=== PATIENT | female | born 1965 | race Caucasian/White ===

== ENCOUNTER → 2017-01-25 | Outpatient (CLI) | payer BC ==
--- NOTE | 2017-01-25 11:30 | MM ---
Reason for exam: screening (asymptomatic). Last mammogram was performed 3 years and 7 months ago. History: Patient is postmenopausal and is nulliparous. Family history of breast cancer in maternal aunt. Taking progesterone for 20 years beginning at age 32. Physical Findings: A clinical breast exam by your physician is recommended on an annual basis and results should be correlated with mammographic findings. MG Screening Mammo w CAD Bilateral CC and MLO view(s) were taken. Prior study comparison: July 12, 2013, bilateral digital screening mammo w/CAD. February 03, 2012, bilateral digital screening mammo w/CAD. The breast tissue is heterogeneously dense. This may lower the sensitivity of mammography. There is no discrete abnormality. ASSESSMENT: Negative, BI-RAD 1 RECOMMENDATION: Routine screening mammogram of both breasts in 1 year.
== END | disposition home or self-care (01) ==
LOC: RADMAMWWP 08:18
PROVIDERS: ATTEND Internal Medicine
DX: Z12.31 Encounter for screening mammogram for malignant neoplasm of breast (principal)

== ENCOUNTER → 2017-05-13 | Outpatient (CLI) | payer BC ==
[2017-05-13 13:06] VITALS: BP 108/75; PULSE 76; TEMP 98; BMI 35.3
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
== END | disposition home or self-care (01) ==
LOC: BARWHC3 11:24
PROVIDERS: ATTEND Surgery Plastic and Reconstructive Surgery
DX: Z09 Encounter for follow-up examination after completed treatment for conditions other than malignant neoplasm (principal); R63.5 Abnormal weight gain; M19.90 Unspecified osteoarthritis, unspecified site; Z71.3 Dietary counseling and surveillance; Z98.84 Bariatric surgery status
CPT/HCPCS: 97803; 99211

== ENCOUNTER → 2018-04-11 | Outpatient (CLI) | payer BC ==
--- NOTE | 2018-04-13 10:29 | MM ---
Reason for exam: screening (asymptomatic). Last mammogram was performed 1 year and 2 months ago. History: Patient is postmenopausal and is nulliparous. Family history of breast cancer in maternal aunt. Taking progesterone for 20 years beginning at age 32. Physical Findings: A clinical breast exam by your physician is recommended on an annual basis and results should be correlated with mammographic findings. MG Screening Mammo w CAD Bilateral CC and MLO view(s) were taken. Prior study comparison: January 25, 2017, bilateral MG screening mammo w CAD. July 12, 2013, bilateral digital screening mammo w/CAD. The breast tissue is heterogeneously dense. This may lower the sensitivity of mammography. Finding: There are stable, fine, segmental calcifications in the middle posterior position of the left breast consistent with 2017 exam. No significant changes in finding since January 25, 2017. ASSESSMENT: Benign, BI-RAD 2 RECOMMENDATION: Routine screening mammogram of both breasts in 1 year.
== END | disposition home or self-care (01) ==
LOC: RADMAMWWP 16:51
PROVIDERS: ATTEND Internal Medicine
DX: Z12.31 Encounter for screening mammogram for malignant neoplasm of breast (principal)
CPT/HCPCS: 77067

== ENCOUNTER 2018-04-21 12:54 | Emergency (ER) | payer BC ==
[2018-04-21] MEDS ORDERED: MORPHINE SULFATE 2 MG/ML SYRINGE IVP ONE (13:40)
[2018-04-21] MEDS ORDERED: RX INFO: IV CONTRAST WAS GIVEN 1 EACH MISC MISCELLANE PRN (14:48)
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
--- NOTE | 2018-04-21 16:35 | CT ---
EXAMINATION TYPE: CT chest w con DATE OF EXAM: 04/21/2018 COMPARISON: NONE HISTORY: Chest and back pain after fall yesterday. CT DLP: 314.4 mGycm, Automated exposure control for dose reduction was used. CONTRAST: Performed injected with 35ml mL of Isovue 370. TECHNIQUE: Axial images were obtained at 5 mm thick sections. Reconstructed images are reviewed on [employer] computer in the coronal plane. FINDINGS: Portion of the thyroid visualized is normal. No pneumothorax is evident. No suspicious infiltrates are present. No pneumomediastinum is evident. N o perivascular air is identified. No enlarged mediastinal or hilar adenopathy is evident. The ascending aorta diameter at the level o f the main pulmonary artery is 2.6 cm. The main pulmonary artery diameter at the bifurcation is 2.[address] sections are obtained through the upper abdomen. Postsurgical changes are within the stoma ch. IMPRESSIONS: 1. No acute posttraumatic changes.
[2018-04-21] MEDS ORDERED: MORPHINE SULFATE 2 MG/ML SYRINGE IVP STA (16:37)
--- NOTE | 2018-04-21 16:50 | CT ---
EXAMINATION TYPE: CT angio neck DATE OF EXAM: 04/21/2018 HISTORY: Neck pain after fall yesterday. COMPARISON: NONE CT DLP: 303.6 mGycm. Automated Exposure Control for Dose Reduction was Utilized. TECHNIQUE: CTA scan of the neck is performed with IV Contrast, patient injected with 65ml mL of Isov ue 370, axial images are obtained, coronal and sagittal reformatted images are reviewed. Three-D sarai nstructed images are created on an independent workstation and reviewed. FINDINGS: Some beam hardening artifact from the anterior cervical fusion is evident. Carotid/Vascular Structures: There is a three-vessel arch. No perivascular air is identified within the mediastinum. Very minimal distal air is present on this study due to the skull base. The air appears to be diminished from the comparison study performed slightly earlier in the same date. Vertebral arteries are codominant. [place] tid bifurcations appear normal. No dissections are identified. Other: [place]: The right posterior communicating artery is patent. Internal carotid arterie s bifurcate into A1 and M1 segments. The A2 segments appear normal. The anterior communicating artery is patent. IMPRESSION: 1. An etiology for air adjacent to the vascular structures near the skull base or not identified. Con adjuster electrical contacts an occult skull base fracture. 2. Carotid bifurcations appear normal. The vertebral arteries are codominant. No dissections are iden tified.
[2018-04-21 17:07] VITALS: RESP 19
[2018-04-21 18:02] VITALS: BP 109/57; PULSE 68; TEMP 97.8
== END 2018-04-21 18:05 | disposition short-term general hospital (02) ==
LOC: EC 12:54
DX: S00.83XA Contusion of other part of head, initial encounter (principal); G93.89 Other specified disorders of brain; M54.2 Cervicalgia; M25.519 Pain in unspecified shoulder; R53.1 Weakness; G89.29 Other chronic pain; F32.9 Major depressive disorder, single episode, unspecified; Z79.891 Long term (current) use of opiate analgesic; Z79.899 Other long term (current) drug therapy; Z88.5 Allergy status to narcotic agent; Z98.1 Arthrodesis status; W18.09XA Striking against other object with subsequent fall, initial encounter; Y93.01 Activity, walking, marching and hiking; Y92.89 Other specified places as the place of occurrence of the external cause
CPT/HCPCS: 70450; 70486; 70498; 71260; 72125; 96374; 96376; 99285

== ENCOUNTER → 2019-04-28 | Outpatient (CLI) | payer BC ==
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
== END ==
LOC: RADMRIMAIN 18:49
PROVIDERS: ATTEND Physical Medicine & Rehabilitation
DX: M48.061 Spinal stenosis, lumbar region without neurogenic claudication (principal); M51.17 Intervertebral disc disorders with radiculopathy, lumbosacral region; M51.16 Intervertebral disc disorders with radiculopathy, lumbar region
CPT/HCPCS: 72148

== ENCOUNTER 2020-06-26 16:15 | Observation (INO) | payer BC ==
[2020-06-26] MEDS ORDERED: KETOROLAC 30 MG/ML 1 ML VIAL IVP STA (16:41)
[2020-06-26] MEDS ORDERED: DEXAMETHASONE SOD PHOSPHATE 10 MG/ML 1 ML VIAL IV STA (16:41)
[2020-06-26] MEDS ORDERED: HYDROmorphone 1 MG/ML 1 ML SYRINGE IVP STA (16:41)
[2020-06-26] MEDS ORDERED: ONDANSETRON 4 MG/2 ML VIAL IVP STA (16:41)
[2020-06-26] MEDS ORDERED: SODIUM CHLORIDE 0.9% 1,000 ML IV STA (16:41)
[2020-06-26] MEDS ORDERED: diphenhydrAMINE 50 MG/ML 1 ML VIAL IVP STA (16:45)
--- NOTE | 2020-06-26 16:59 | ED ---
Back Pain HPI - General Chief Complaint: Back Pain/Injury Stated Complaint: Back Pain Time Seen by Provider: 06/26/20 16:17 Source: patient, RN notes reviewed, old records reviewed Limitations: physical limitation - History of Present Illness Initial Comments: This is a 35-year-old female DF for evaluation of severe back pain history of chronic back pain and sciatica with prior MRI. Patient does get epidural injections but nothing recently. Patient was in severe pain [place] the pain was so severe that she had to call EMS to take her to recent near Hospital. Patient still presents with severe back pain today she was able to get home after getting pain medication at the other hospital and has been crawling around her house with inability to ambulate for the last 3 days. Patient able to move her legs as the back pain is severe, no loss of bowel or bladder no fevers no new trauma MD Complaint: back pain -: days(s) Similar Symptoms Previously: Yes Place: home Radiation: none Severity: severe Severity scale (1-10): 10 Quality: sharp Consistency: constant Improves With: none Worsens With: movement Context: while lifting Associated Symptoms: denies other symptoms - Related Data Home Medications Medication Instructions Recorded Confirmed Estrogens, Conjugated [Premarin] 0.625 mg PO QAM 11/28/14 10/05/18 Citalopram Hydrobromide [CeleXA] 40 mg PO HS 04/21/18 10/05/18 Tapentadol HCl [Nucynta ER] 100 mg PO BID 04/21/18 10/05/18 Topiramate [Topamax] 100 mg PO BID 04/21/18 10/05/18 ALPRAZolam [Xanax] 0.5 mg PO DAILY PRN 10/03/18 10/05/18 Allergies Allergy/AdvReac Type Severity Reaction Status Date / Time No Known Allergies Allergy Verified 06/26/20 18:44 Review of Systems ROS Statement: Those systems with pertinent positive or pertinent negative responses have been documented in the HPI. ROS Other: All systems not noted in ROS Statement are negative. 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 Past Anesthesia/Blood Transfusion Reactions: No Reported Reaction Past Psychological History: Depression Smoking Status: Never smoker Past Alcohol Use History: None Reported Past Drug Use History: Marijuana - Past Family History Mother Family Medical History: No Reported History General Exam Limitations: physical limitation General appearance: alert, in no apparent distress Head exam: Present: atraumatic, normocephalic, normal inspection Eye exam: Present: normal appearance, PERRL, EOMI. Absent: scleral icterus, conjunctival injection, periorbital swelling ENT exam: Present: normal exam, mucous membranes moist Neck exam: Present: normal inspection. Absent: tenderness, meningismus, ly mphadenopathy Respiratory exam: Present: normal lung sounds bilaterally. Absent: respiratory distress, wheezes, rales, rhonchi, stridor Cardiovascular Exam: Present: regular rate, normal rhythm, normal heart sounds. Absent: systolic murmur, diastolic murmur, rubs, gallop, clicks GI/Abdominal exam: Present: soft, normal bowel sounds. Absent: distended, tenderness, guarding, rebound, rigid Extremities exam: Present: normal inspection, full ROM, normal capillary refill. Absent: tenderness, pedal edema, joint swelling, calf tenderness Back exam: Present: normal inspection Neurological exam: Present: alert, oriented X3, CN II-XII intact Psychiatric exam: Present: normal affect, normal mood Skin exam: Present: warm, dry, intact, normal color. Absent: rash Course Vital Signs 06/26/20 06/26/20 06/26/20 16:16 17:17 17:30 Temperature 98.5 F Pulse Rate 71 65 65 Respiratory 18 18 18 Rate Blood Pressure 121/66 134/81 133/77 O2 Sat by Pulse 97 98 98 Oximetry 06/26/20 18:00 Temperature Pulse Rate 6 L Respiratory 18 Rate Blood Pressure 111/80 O2 Sat by Pulse 98 Oximetry - Reevaluation(s) Reevaluation #1: 06/26/20 16:59 Medical record is reviewed Reevaluation #2: 06/26/20 19:01 Patient still with severe back pain - Consultations Consultation #1: Spoke with [facility] to admit patient Medical Decision Making - Medical Decision Making 55 female here wit chronic back pain [place] for further imaging and pain control - Lab Data Result diagrams: 06/26/20 16:57 06/26/20 16:57 Lab Results 06/26/20 06/26/20 06/26/20 Range/Units 16:57 16:57 16:57 WBC 9.1 (3.8-10.6) k/uL RBC 4.30 (3.80-5.40) m/uL Hgb 13.0 (11.4-16.0) gm/dL Hct 41.0 (34.0-46.0) % MCV 95.4 (80.0-100.0) fL MCH 30.3 (25.0-35.0) pg MCHC 31.8 (31.0-37.0) g/dL RDW 13.8 (11.5-15.5) % Plt Count 248 (150-450) k/uL Neutrophils % 78 % Lymphocytes % 16 % Monocytes % 4 % Eosinophils % 1 % Basophils % 0 % Neutrophils # 7.1 (1.3-7.7) k/uL Lymphocytes # 1.5 (1.0-4.8) k/uL Monocytes # 0.4 (0-1.0) k/uL Eosinophils # 0.0 (0-0.7) k/uL Basophils # 0.0 (0-0.2) k/uL Sodium 137 (137-145) mmol/L Potassium 4.2 (3.5-5.1) mmol/L Chloride 108 H (98-107) mmol/L Carbon Dioxide 25 (22-30) mmol/L Anion Gap 4 mmol/L BUN 18 H (7-17) mg/dL Creatinine 1.00 (0.52-1.04) mg/dL Est GFR (CKD-EPI)AfAm 75 (>60 ml/min/1.73 sqM) Est GFR (CKD-EPI)NonAf 65 (>60 ml/min/1.73 sqM) Glucose 107 H (74-99) mg/dL Calcium 8.5 (8.4-10.2) mg/dL Phosphorus 2.5 (2.5-4.5) mg/dL Total Bilirubin 0.2 (0.2-1.3) mg/dL AST 17 (14-36) U/L ALT 17 (4-34) U/L Alkaline Phosphatase 74 (38-126) U/L Creatine Kinase 32 (30-135) U/L Troponin I <0.012 (0.000-0.034) ng/mL Total Protein 5.8 L (6.3-8.2) g/dL Albumin 3.4 L (3.5-5.0) g/dL - EKG Data -: EKG Interpreted by Me (EKG sinus rhythm 63 [place] 136 QRS 82 QTC 444) Disposition Clinical Impression: Mechanical back pain, Lumbar radiculopathy Disposition: ADMITTED IP TO THIS HOSP Condition: Fair Instructions (If sedation given, give patient instructions): Acute Low Back Pain (ED) Is patient prescribed a controlled substance at d/c from ED?: No Referrals: Mirna Worley MD [Primary Care Provider] - 1-2 days
[2020-06-26 17:06] LABS: Basophils % (A) 0 %; Eosinophils % (A) 1 %; Lymphocytes # (A) 1.5 k/uL (1.0-4.8); Lymphocytes % (A) 16 %; MCH 30.3 pg (25.0-35.0); MCHC 31.8 g/dL (31.0-37.0); MCV 95.4 fL (80.0-100.0); Mean Platelet Volume 7.7; Monocytes # (A) 0.4 k/uL (0-1.0); Monocytes % (A) 4 %; Neutrophils # (A) 7.1 k/uL (1.3-7.7); Neutrophils % (A) 78 %; Platelet Count 248 k/uL (150-450); RDW 13.8 % (11.5-15.5); WBC 9.1 k/uL (3.8-10.6)
[2020-06-26 17:22] LABS: Albumin 3.4 g/dL (3.5-5.0); Calcium 8.5 mg/dL (8.4-10.2); Phosphorus 2.5 mg/dL (2.5-4.5); Potassium 4.2 mmol/L (3.5-5.1); Total Bilirubin 0.2 mg/dL (0.2-1.3); Total Protein 5.8 g/dL (6.3-8.2)
--- NOTE | 2020-06-26 18:02 | US ---
EXAMINATION TYPE: US venous doppler duplex LE LT DATE OF EXAM: 06/26/2020 5:54 PM COMPARISON: NONE CLINICAL HISTORY: pain. Pain in left leg x 1 week. No hx of DVT. Patient does not take blood thinners . SIDE PERFORMED: Left TECHNIQUE: The lower extremity deep venous system is examined utilizing real time linear array sonog reji with graded compression, doppler sonography and color-flow sonography. VESSELS IMAGED: External Iliac Vein (EIV) Common Femoral Vein Deep Femoral Vein Greater Saphenous Vein * Femoral Vein Popliteal Vein Small Saphenous Vein * Proximal Calf Veins (* superficial vessels) Left Leg: No evidence of DVT in veins imaged at this time from prox calf veins to EIV. Duplicate fem oral vein seen mid-distal. Femoral vein appears small. Duplicate popliteal vein seen. IMPRESSION: No sign of left leg deep vein thrombosis.
[2020-06-26 20:45] VITALS: RESP 16
[2020-06-26] MEDS: HYDROmorphone 1 MG/ML 1 ML SYRINGE IVP PRN (21:16)
[2020-06-26 23:26] LABS: Appearance,Urine Clear (Clear); Bilirubin,Urine Negative (Negative); Blood,Urine Negative (Negative); Color,Urine Yellow; Glucose,Urine (UA) Negative (Negative); Ketones,Urine Negative (Negative); Leukocyte Esterase,Urine Negative (Negative); Nitrite,Urine Negative (Negative); Protein,Urine Negative (Negative); Specific Gravity,Urine 1.025 (1.001-1.035); Urobilinogen,Urine <2.0 mg/dL (<2.0)
[2020-06-27] MEDS: HYDROmorphone 1 MG/ML 1 ML SYRINGE IVP PRN ×7 (00:16→21:35)
[2020-06-27] MEDS: diphenhydrAMINE 50 MG/ML 1 ML VIAL IVP PRN ×2 (03:28→12:44)
[2020-06-27] MEDS: LIDOCAINE 5% PATCH TOPICAL SCH (07:51)
--- NOTE | 2020-06-27 14:34 | MR ---
EXAMINATION TYPE: MR lumbar spine wo/w con DATE OF EXAM: 06/27/2020 COMPARISON: 04/28/2019 HISTORY: Lower back pain into both Calf areas, Left side worse than right. Started over a year ago bu t became extreme 1 week ago. CONTRAST: 10 mL intravenous Gadavist. TECHNIQUE: Multiplanar, multisequence images of the lumbar spine were acquired. FINDINGS: L5-S1: Degenerative disc changes are present within the disc level with narrowing of the disc height. Some residual disc bulge and anterior thecal sac contact and mild bilateral exiting nerve root conta ct. This is greater on the left than the right. Correlate for left S1 radicular symptoms. L4-L5: Minimal disc bulge is present within the intrathecal sac contact. No AP spinal canal stenosis or neural foraminal stenosis present. L3-L4: There is a left paracentral disc herniation with [id number] intrathecal sac contact. Thi s extends posterior to the L3 vertebral level. This may be slightly smaller than 04/28/2019 exam. No AP spinal canal stenosis present. Neural foramen are patent. L2-L3: No significant disc bulge or disc herniation. No spinal canal stenosis. No foraminal stenosi s. L1-L2: No significant disc bulge or disc herniation. No spinal canal stenosis. No foraminal stenosi s. T12-L1: No significant disc bulge or disc herniation. No spinal canal stenosis. No foraminal stenos is. IMPRESSION: 1. Left paracentral disc herniation mild anterior thecal sac compression. This may be slightly smalle r than comparison at 2019. 2. Degenerative disc changes with disc bulging have contact with the exiting nerve roots at L5-S1. Co rrelate with left S1 radicular symptoms.
--- NOTE | 2020-06-27 15:45 | P.HPIM ---
History of Present Illness patient 52-year-old female with a history of chronic back pain sciatica in the past came in with complaints of back pain which has been going on for a few weeks much worse last the knee 4 days. Patient is comparing of radiation of the pain and tingling numbness along the lateral aspect of the thigh and aren't to the posterior aspect of the leg and foot on the left side. Patient pain is severe sharp 10/10 in the lumbosacral area. patient also believes that she has some weakness on clinical exam patient doesn't have any focal weakness denied any saddle anesthesia. Review of Systems REVIEW OF SYSTEMS: CONSTITUTIONAL: No fever, no malaise, no fatigue. HEENT: No recent visual problems or hearing problems. Denied any sore throat. CARDIOVASCULAR: No chest pain, orthopnea, PND, no palpitations, no syncope. PULMONARY: No shortness of breath, no cough, no hemoptysis. GASTROINTESTINAL: No diarrhea, no nausea, no vomiting, no abdominal pain. NEUROLOGICAL: No headaches, no weakness, no numbness. HEMATOLOGICAL: Denies any bleeding or petechiae. GENITOURINARY: Denies any burning micturition, frequency, or urgency. MUSCULOSKELETAL/RHEUMATOLOGICAL: as mentioned in HPI ENDOCRINE: Denies any polyuria or polydipsia. The rest of the 14-point review of systems is negative. Past Medical History Additional Past Medical History / Comment(s): Chronic Neck pain, back History of Any Multi-Drug Resistant Organisms: None Reported Past Surgical History: Bariatric Surgery, Cholecystectomy, Hysterectomy, O rthopedic Surgery, Tonsillectomy Additional Past Surgical History / Comment(s): neck surgery 04/04 , 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 Past Anesthesia/Blood Transfusion Reactions: No Reported Reaction Past Psychological History: Depression Smoking Status: Never smoker Past Alcohol Use History: None Reported Past Drug Use History: Marijuana - Past Family History Mother Family Medical History: No Reported History Medications and Allergies Home Medications Medication Instructions Recorded Confirmed Type Estrogens, Conjugated [Premarin] 0.625 mg PO DAILY 11/28/14 06/26/20 History Citalopram Hydrobromide [CeleXA] 40 mg PO HS 04/21/18 06/26/20 History Tapentadol HCl [Nucynta ER] 100 mg PO BID 04/21/18 06/26/20 History Cyclobenzaprine [Flexeril] 10 mg PO TID PRN 06/26/20 06/26/20 History Ibuprofen [Motrin Ib] 600 mg PO Q6H PRN 06/26/20 06/26/20 History Pantoprazole Sodium [Protonix] 40 mg PO DAILY 06/26/20 06/26/20 History Topiramate [Topamax] 100 mg PO BID 06/26/20 06/26/20 History predniSONE [Deltasone] See Taper PO DAILY 06/26/20 06/27/20 History ALPRAZolam [Xanax] 0.25 mg PO BID PRN 06/27/20 06/27/20 History Allergies Allergy/AdvReac Type Severity Reaction Status Date / Time No Known Allergies Allergy Verified 06/26/20 18:44 Physical Exam Vitals: Vital Signs Temp Pulse Pulse Resp BP BP Pulse Ox 06/27/20 14:28 97.5 F L 81 16 117/78 97 06/27/20 09:00 98.1 F 74 16 111/73 95 06/27/20 03:00 97.7 F 68 16 149/88 96 06/27/20 02:52 16 06/26/20 20:30 97.4 F L 75 16 120/58 97 06/26/20 18:30 63 18 128/80 98 06/26/20 18:00 65 18 111/80 98 06/26/20 17:30 65 18 133/77 98 06/26/20 17:17 65 18 134/81 98 06/26/20 16:16 98.5 F 71 18 121/66 97 Intake and Output 06/27/20 06/27/20 06/27/20 06:59 14:59 22:59 Intake Total 2360 Balance 2360 Intake: Intake, IV Titration 780 Amount Sodium Chloride 0.9% 1, 780 000 ml @ 130 mls/hr IV . Q7H42M STA Rx#:[id number] Oral 1580 Other: Voiding Method Toilet # Voids 240 1 PHYSICAL EXAMINATION: GENERAL: The patient is alert and oriented x3, not in any acute distress. Well developed, well nourished. HEENT: Pupils are round and equally reacting to light. EOMI. No scleral icterus. No conjunctival pallor. Normocephalic, atraumatic. No pharyngeal erythema. No thyromegaly. CARDIOVASCULAR: S1 and S2 present. No murmurs, rubs, or gallops. PULMONARY: Chest is clear to auscultation, no wheezing or crackles. ABDOMEN: Soft, nontender, nondistended, normoactive bowel sounds. No palpable organomegaly. MUSCULOSKELETAL: No joint swelling or deformity. EXTREMITIES: No cyanosis, clubbing, or pedal edema. NEUROLOGICAL: Gross neurological examination did not reveal any focal deficits. SKIN: No rashes. Results CBC & Chem 7: 06/26/20 16:57 06/26/20 16:57 Labs: Abnormal Lab Results - Last 24 Hours (Table) 06/26/20 Range/Units 16:57 Chloride 108 H (98-107) mmol/L BUN 18 H (7-17) mg/dL Glucose 107 H (74-99) mg/dL Total Protein 5.8 L (6.3-8.2) g/dL Albumin 3.4 L (3.5-5.0) g/dL Thrombosis Risk Factor Assmnt - Choose All That Apply Each Factor Represents 1 point: Age 41-60 years, Obesity (BMI >25), Swollen legs (current) Other congenital or acquired thrombophilia - If yes, enter type in comment: No Thrombosis Risk Factor Assessment Total Risk Factor Score: 3 Thrombosis Risk Factor Assessment Level: Moderate Risk Assessment and Plan Plan: -severe low back pain patient does have history of chronic low back pain. Patient had multiple steroid injections in the back in the past. Arthritic surgery was consulted. MRI was done which showed paracentral disc herniationon the left side along with mild anterior thecal sac compression at L3-L4 levelpatient also started on Decadron along with the anti-inflammatory medications with GI prophylaxis along with Dilaudid. -depression -Gastroesophageal reflux disease DVT prophylaxis with Lovenox
[2020-06-27] MEDS: dexAMETHasone 4 MG TAB PO SCH ×2 (16:25→21:36)
[2020-06-27] MEDS: KETOROLAC 30 MG/ML 1 ML VIAL IVP PRN (16:27)
[2020-06-27] MEDS: FAMOTIDINE 20 MG TAB PO SCH (21:35)
[2020-06-28] MEDS: HYDROmorphone 1 MG/ML 1 ML SYRINGE IVP PRN ×3 (00:41→08:54)
[2020-06-28] MEDS: KETOROLAC 30 MG/ML 1 ML VIAL IVP PRN (03:47)
[2020-06-28] MEDS: FAMOTIDINE 20 MG TAB PO SCH (08:44)
[2020-06-28] MEDS: dexAMETHasone 4 MG TAB PO SCH (08:52)
[2020-06-28] MEDS: LIDOCAINE 5% PATCH TOPICAL SCH (08:53)
[2020-06-28 11:42] VITALS: BP 140/84; PULSE 60; TEMP 98.1
--- NOTE | 2020-06-28 12:46 | P.CNOR ---
History of Present Illness - [facility] Consult date: 06/28/20 Requesting physician: Lea Lovelace Consult reason: low back pain, other (Left lower extremity radiculopathy) History of present illness: Patient is a very pleasant 55-year-old female who is seen and examined in the observation unit for further evaluation of low back pain and left lower extremity radiculopathy. She states she is known to have some chronic low back pain and left lower extremity radiculopathy over the past couple years. She follows with Dr. De La Rosa in the outpatient setting. Her pain is most significant radiating from the lumbar spine, into the left buttock, down the lateral thigh, down the posterior calf, into the bottom of the left foot. Her symptoms were present to a much lesser degree approximately one week ago. She was started on a prednisone taper by Dr. De La Rosa. She states she went to [facility] with her family last weekend. After prolonged walking, states she had some discomfort on Wednesday and her symptoms were severe by Wednesday. She has had difficulty with ambulation pain control since that time. She feels some weakness in her left lower extremity. She denies specific injury. She also admits to increased difficulty with urination since exacerbation of her symptoms. She does have normal sensation. She denies saddle anesthesia. Consultation was placed with orthopedic spine for further evaluation. Consultation was also placed with pain management who has been unable to see the patient as they are only opened Wednesday through here at the hospital. Patient denies any right lower extremity weakness or radiculopathy. She has been previously seen and examined by us in the outpatient setting in July 2019 was not a surgical candidate at that time. Patient has had an MRI of her lumbar spine prior to today's examination. 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 Past Anesthesia/Blood Transfusion Reactions: No Reported Reaction Past Psychological History: Depression Smoking Status: Never smoker Past Alcohol Use History: None Reported Past Drug Use History: Marijuana - Past Family History Mother Family Medical History: No Reported History Medications and Allergies Home Medications Medication Instructions Recorded Confirmed Type Estrogens, Conjugated [Premarin] 0.625 mg PO DAILY 11/28/14 06/26/20 History Citalopram Hydrobromide [CeleXA] 40 mg PO HS 04/21/18 06/26/20 History Tapentadol HCl [Nucynta ER] 100 mg PO BID 04/21/18 06/26/20 History Ibuprofen [Motrin Ib] 600 mg PO Q6H PRN 06/26/20 06/26/20 History Pantoprazole Sodium [Protonix] 40 mg PO DAILY 06/26/20 06/26/20 History Topiramate [Topamax] 100 mg PO BID 06/26/20 06/26/20 History ALPRAZolam [Xanax] 0.25 mg PO BID PRN 06/27/20 06/27/20 History Cyclobenzaprine [Flexeril] 10 mg PO TID PRN #30 tab 06/28/20 Rx HYDROcodone/APAP 7.5-325MG [[place] 1 tab PO Q4H PRN #20 tab 06/28/20 Rx 7.5-325] dexAMETHasone [Hexadrol] 4 mg PO TID #30 tab 06/28/20 Rx polyethylene glycoL 3350 [Miralax] 17 gm PO DAILY PRN #15 packet 06/28/20 Rx Allergies Allergy/AdvReac Type Severity Reaction Status Date / Time No Known Allergies Allergy Verified 06/26/20 18:44 Physical Examination Physical exam: Patient is awake, alert, and oriented 3 Vital signs stable Good chest excursion with deep inspiration and expiration Examination of lumbar spine reveals skin is intact with no abrasions, lacerations, or bruises; no erythema, purulence or signs of infection Lower extremity strength 5/5 bilaterally including hip flexion, knee extension, and plantar flexion Lower extremity strength is 4/5 including extensor hallucis longus on the left Lower extremity strength is 5/5 with breakaway strength including dorsiflexion on the left Right lower extremity strength is 5/5 including extensor hallucis longus and dorsiflexion Patellar reflex 2+ bilaterally No lower extremity hyperreflexia bilaterally Straight leg test negative bilateral lower extremities Some increased pain with L seeks testing on the left No signs or symptoms of DVT; no calf pain No pain with internal and external rotation of the hips bilaterally Neurovascularly intact Results Pertinent studies: MRI of the lumbar spine taken on 06/27/2020: L3-4 left paracentral disc protrusion with some contact to the thecal sac with extension posteriorly L3 without evidence of spinal canal stenosis or neuroforaminal stenosis and this protrusion may be smaller as compared to previous imaging taking from 04/28/2019; L4-5 minimal disc bulge; L5-S1 degenerative disc disease with residual disc bulging resulting in contact to the anterior thecal sac and some contact to the bilateral exiting nerve roots greater on the left than the right; overall alignment is adequately maintained; no evidence of vertebral body compression fracture - Labs Labs: H & H 06/26/20 Range/Units 16:57 Hgb 13.0 (11.4-16.0) gm/dL Hct 41.0 (34.0-46.0) % Result Diagrams: 06/26/20 16:57 06/26/20 16:57 Assessment and Plan Assessment: Assessment: Acute on chronic low back pain Acute on chronic left lower extremity radiculopathy Left lower extremity weakness L5-S1 degenerative disc disease L5-S1 disc protrusion with some contact to the exiting nerve roots greater on the left than the right L3-4 disc protrusion with some cephalad migration behind L3 Obesity (1) Lumbar back pain with radiculopathy affecting left lower extremity Status: Acute Code(s): M54.16 - RADICULOPATHY, LUMBAR REGION SNOMED Code(s): 287668137 (2) Degenerative disc disease at L5-S1 level Status: Acute Code(s): M51.36 - OTHER INTERVERTEBRAL DISC DEGENERATION, LUMBAR REGION SNOMED Code(s): 18255152 (3) Herniation of intervertebral disc between L5 and S1 Status: Acute Code(s): M51.27 - OTHER INTERVERTEBRAL DISC DISPLACEMENT, LUMBOSACRAL REGION SNOMED Code(s): 25429962 (4) Weakness of left lower extremity Status: Acute Code(s): R29.898 - OTH SYMPTOMS AND SIGNS INVOLVING THE MUSCULOSKELETAL SYSTEM SNOMED Code(s): 943598018 (5) Acute exacerbation of chronic low back pain Status: Acute Code(s): M54.5 - LOW BACK PAIN; G89.29 - OTHER CHRONIC PAIN SNOMED Code(s): 025285099 (6) Obesity (BMI 30-39.9) Status: Acute Code(s): E66.9 - OBESITY, UNSPECIFIED SNOMED Code(s): 143610388 Plan: Plan: 1. After reviewing of imaging, physical examination of the patient, and further discussion with the patient, we will currently plan to continue conservative treatment at this time. Patient was previously seen and examined in the outpatient setting after MRI imaging taken on 04/28/2019. MRI imaging taken yesterday, 06/27/2020, has not had significant change as compared to the previous imaging from 04/28/2019. Patient does have history of chronic low back pain and left lower extremity radiculopathy and follows with Dr. De La Rosa and the outpatient setting. Her symptoms have been significantly exacerbated after prolonged walking on [facility] with her family over the past weekend. Reviewing of imaging does not show evidence of significant spinal canal stenosis or neural foraminal stenosis throughout her lumbar spine. She does have some degenerative changes most significant at L5-S1 with some contact the exiting nerve greater on the left than the right. It is difficult to attribute all of her symptoms with her left lower extremity to the changes at L5-S1. Based on her changes at L5-S1, she could be a candidate for injections with pain management. Pain management services are not available in the hospital until this coming 07/01/2020. At this time, patient had been discussed in detail with medicine who is planning to try to help control the patient's symptoms would plan for discharge home today. Following discharge, patient may follow-up with Dr. De La Rosa in pain management this coming 07/01/2020, for further evaluation and to discuss further treatment options. We will plan to have her follow up on an as-needed basis as we are not currently planning for surgical intervention or lumbosacral spine. 2. Patient will continue to be seen in exam by medicine for her medical diagnoses Time with Patient: Greater than 30 (Including obtaining history, physical examination, reviewing of imaging, and dictation.)
--- NOTE | 2020-06-28 15:19 | P.DS ---
Providers Date of admission: 06/26/20 19:00 Attending physician: Ankur Danielle Consults: 06/27/20 15:44 Consult Physician Routine Consulting Provider: Tori Hassan Consult Reason/Comments: sciatic pain Do you want consulting provider notified?: Yes Primary care physician: Mirna Worley [facility] Course: 52-year-old female with a history of chronic back pain sciatica in the past came in with complaints of back pain which has been going on for a few weeks much worse last the knee 4 days. Patient is comparing of radiation of the pain and tingling numbness along the lateral aspect of the thigh and aren't to the posterior aspect of the leg and foot on the left side. Patient pain is severe sharp 10/10 in the lumbosacral area. patient also believes that she has some weakness on clinical exam patient doesn't have any focal weakness denied any saddle anesthesia. 06/28/2020 MRI was done which showed paracentral disc herniationon the left side along with mild anterior thecal sac compression at L3-L4 levelpatient also started on Decadron along with the anti-inflammatory medications . Patient is being discharged on [place], Flexeril, Decadron weaning doses, follow-up with the arthritic surgery and pain management as an outpatient. Patient does take extra Dilantin with his home. Patient pains is still not well controlled. PHYSICAL EXAMINATION: GENERAL: The patient is alert and oriented x3, not in any acute distress. Well developed, well nourished. HEENT: Pupils are round and equally reacting to light. EOMI. No scleral icterus. No conjunctival pallor. Normocephalic, atraumatic. No pharyngeal erythema. No thyromegaly. CARDIOVASCULAR: S1 and S2 present. No murmurs, rubs, or gallops. PULMONARY: Chest is clear to auscultation, no wheezing or crackles. ABDOMEN: Soft, nontender, nondistended, normoactive bowel sounds. No palpable organomegaly. MUSCULOSKELETAL: No joint swelling or deformity. EXTREMITIES: No cyanosis, clubbing, or pedal edema. NEUROLOGICAL: Gross neurological examination did not reveal any focal deficits. SKIN: No rashes. For rest of the medical problems and has physician course please refer to my HPI from yesterday Patient Condition at Discharge: Fair Plan - Discharge Summary New Discharge Prescriptions: New dexAMETHasone [Hexadrol] 4 mg PO TID #30 tab polyethylene glycoL 3350 [Miralax] 17 gm PO DAILY PRN #15 packet PRN Reason: Constipation HYDROcodone/APAP 7.5-325MG [[place] 7.5-325] 1 tab PO Q4H PRN #20 tab PRN Reason: Pain Continue Estrogens, Conjugated [Premarin] 0.625 mg PO DAILY Citalopram Hydrobromide [CeleXA] 40 mg PO HS Tapentadol HCl [Nucynta ER] 100 mg PO BID Pantoprazole Sodium [Protonix] 40 mg PO DAILY Topiramate [Topamax] 100 mg PO BID Ibuprofen [Motrin Ib] 600 mg PO Q6H PRN PRN Reason: Pain ALPRAZolam [Xanax] 0.25 mg PO BID PRN PRN Reason: Anxiety Cyclobenzaprine [Flexeril] 10 mg PO TID PRN #30 tab PRN Reason: muscle spasm Discontinued predniSONE [Deltasone] See Taper PO DAILY Discharge Medication List Estrogens, Conjugated [Premarin] 0.625 mg PO DAILY 11/28/14 [History] Citalopram Hydrobromide [CeleXA] 40 mg PO HS 04/21/18 [History] Tapentadol HCl [Nucynta ER] 100 mg PO BID 04/21/18 [History] Ibuprofen [Motrin Ib] 600 mg PO Q6H PRN 06/26/20 [History] Pantoprazole Sodium [Protonix] 40 mg PO DAILY 06/26/20 [History] Topiramate [Topamax] 100 mg PO BID 06/26/20 [History] ALPRAZolam [Xanax] 0.25 mg PO BID PRN 06/27/20 [History] Cyclobenzaprine [Flexeril] 10 mg PO TID PRN #30 tab 06/28/20 [Rx] HYDROcodone/APAP 7.5-325MG [[place] 7.5-325] 1 tab PO Q4H PRN #20 tab 06/28/20 [Rx] dexAMETHasone [Hexadrol] 4 mg PO TID #30 tab 06/28/20 [Rx] polyethylene glycoL 3350 [Miralax] 17 gm PO DAILY PRN #15 packet 06/28/20 [Rx] Follow up Appointment(s)/Referral(s): Tori Hassan DO [Doctor of Osteopathic Medicine] - As Needed (Patient may follow-up with Pascual Oneal PA-C or Dr. Andres Hassan at [facility] on an as-needed basis following discharge. ) Pain Clinic,[facility] [NON-STAFF] - 3 Days Mirna Worley MD [Primary Care Provider] - 3 Days Julio De La Rosa DO [Doctor of Osteopathic Medicine] - 1 Week Patient Instructions/Handouts: Acute Low Back Pain (ED) Discharge Disposition: HOME SELF-CARE
== END 2020-06-28 12:22 | disposition home or self-care (01) ==
LOC: EC 16:15 → 1SOBS 19:00
PROVIDERS: ADMIT Hospitalist; ATTEND Hospitalist
DX: M51.17 Intervertebral disc disorders with radiculopathy, lumbosacral region (principal); F32.9 Major depressive disorder, single episode, unspecified; K21.9 Gastro-esophageal reflux disease without esophagitis; G89.29 Other chronic pain; M54.2 Cervicalgia; M79.89 Other specified soft tissue disorders; E66.9 Obesity, unspecified; Z68.38 Body mass index [BMI] 38.0-38.9, adult; Z79.890 Hormone replacement therapy; Z79.899 Other long term (current) drug therapy; Z79.891 Long term (current) use of opiate analgesic; Z79.1 Long term (current) use of non-steroidal anti-inflammatories (NSAID); Z98.84 Bariatric surgery status; Z90.49 Acquired absence of other specified parts of digestive tract; Z90.710 Acquired absence of both cervix and uterus; Z98.890 Other specified postprocedural states; Z90.89 Acquired absence of other organs
CPT/HCPCS: 96361 ×3; 96375 ×2; 96376 ×3; 96374; 99285; 36415; 93005; 80053; 82550; 84100; 84484; 85025; 81003; 93971; 72158; G0378 ×3; J8540 ×2; J1200 ×2; J1100; J1885 ×2; J1170 ×3; A9585

== ENCOUNTER → 2020-12-04 | Outpatient (CLI) | payer BC ==
--- NOTE | 2020-12-05 13:31 | MM ---
Reason for exam: screening (asymptomatic). Last mammogram was performed 2 years and 8 months ago. History: Patient is postmenopausal and is nulliparous. Family history of breast cancer in maternal aunt. Taking progesterone for 20 years beginning at age 32. Physical Findings: A clinical breast exam by your physician is recommended on an annual basis and results should be correlated with mammographic findings. MG Screening Mammo w CAD Bilateral CC and MLO view(s) were taken. Prior study comparison: April 11, 2018, bilateral MG screening mammo w CAD. January 25, 2017, bilateral MG screening mammo w CAD. The breast tissue is heterogeneously dense. This may lower the sensitivity of mammography. Persistent regional calcifications on the left. Central left CC asymmetric density is more defined. ASSESSMENT: Incomplete: need additional imaging evaluation, BI-RAD 0 RECOMMENDATION: Special view mammogram of the left breast. (3D) If lesion persists on supplemental views, image directed ultrasound is recommended. [facility] will attempt to contact patient to return for supplemental views and ultrasound if indicated.
== END | disposition home or self-care (01) ==
LOC: RADMAMWWP 16:11
PROVIDERS: ATTEND Internal Medicine
DX: Z12.31 Encounter for screening mammogram for malignant neoplasm of breast (principal)
CPT/HCPCS: 77067

== ENCOUNTER → 2020-12-09 | Outpatient (CLI) | payer BC ==
--- NOTE | 2020-12-09 11:06 | MM ---
Reason for exam: additional evaluation requested from abnormal screening. Last mammogram was performed less than 1 month ago. History: Patient is postmenopausal and is nulliparous. Family history of breast cancer in maternal aunt. Taking progesterone for 20 years beginning at age 32. Physical Findings: Nurse did not find any significant physical abnormalities on exam. MG Work Up Mamm w CAD LT Spot compression CC, CCRL, and LM view(s) were taken of the left breast. Prior study comparison: December 04, 2020, bilateral MG screening mammo w CAD. April 11, 2018, bilateral MG screening mammo w CAD. The breast tissue is heterogeneously dense. This may lower the sensitivity of mammography. Regional calcifications are unchanged. Some scattered milk of calcium is also present. The central CC asymmetric density disperses on additional views. These results were verbally communicated with the patient and result sheet given to the patient on 12/09/20. ASSESSMENT: Benign, BI-RAD 2 RECOMMENDATION: Return to routine screening mammogram schedule for both breasts.
--- NOTE | 2020-12-09 11:07 | USB ---
Reason for exam: additional evaluation requested from abnormal screening. History: Patient is postmenopausal and is nulliparous. Family history of breast cancer in maternal aunt. Taking progesterone for 20 years beginning at age 32. US Breast Workup Limited LT Technologist: Mena Lawrence Left limited breast ultrasound including focal area of concern, retroareolar and axilla demonstrates no cystic or solid lesion seen. Scanned 3-6 o'clock. These results were verbally communicated with the patient and result sheet given to the patient on 12/09/20. ASSESSMENT: Benign, BI-RAD 2 RECOMMENDATION: Return to routine screening mammogram schedule for both breasts. Manage on a clinical basis with regard to left breast pain.
== END | disposition home or self-care (01) ==
LOC: RADMAMWWP 08:43
PROVIDERS: ATTEND Internal Medicine
DX: N63.23 Unspecified lump in the left breast, lower outer quadrant (principal); R92.8 Other abnormal and inconclusive findings on diagnostic imaging of breast
CPT/HCPCS: 77065

== ENCOUNTER → 2021-02-05 | Outpatient (CLI) | payer BC ==
--- NOTE | 2021-02-06 04:22 | MR ---
EXAMINATION TYPE: MR ankle RT wo con DATE OF EXAM: 02/05/2021 COMPARISON: None HISTORY: Right ankle pain and swelling for 3 months. Multiplanar multiecho imaging of the right ankle was performed without contrast. Achilles tendon is intact. Plantar fascia appears intact. There is mild ankle joint effusion. The william caneus is intact. Ankle mortise is anatomic. The collateral ligaments are intact. The medial and late ral flexor tendons appear intact. There is some fluid around the peroneal tendon. I see no bony destr uctive process. There is subcutaneous edema over the anterior distal tibia. There is some lateral mil d subcutaneous edema. IMPRESSION: No evidence of ligament or tendon tear. No fracture seen. Mild ankle joint effusion consistent with s ome nonspecific synovitis. Subcutaneous anterior and lateral edema.
== END ==
LOC: RADMRIMAIN 16:42
PROVIDERS: ATTEND Podiatrist
DX: R60.0 Localized edema (principal)

== ENCOUNTER 2021-02-22 23:05 | Emergency (ER) | payer BC ==
[2021-02-22 23:13] VITALS: RESP 18
[2021-02-22] MEDS ORDERED: SODIUM CHLORIDE 0.9% 500 ML 500 ML IV ONE (23:35)
[2021-02-22] MEDS ORDERED: ONDANSETRON 4 MG/2 ML VIAL IVP STA (23:35)
[2021-02-22] MEDS ORDERED: KETOROLAC 15 MG/ML 1 ML VIAL IVP STA (23:35)
[2021-02-22] MEDS ORDERED: ACETAMINOPHEN TAB 325 MG TAB PO STA (23:37)
[2021-02-22 23:51] LABS: Appearance,Urine Clear (Clear); Bilirubin,Urine Negative (Negative); Color,Urine Yellow; Glucose,Urine (UA) Negative (Negative); Ketones,Urine Trace (Negative); Protein,Urine Trace (Negative); Specific Gravity,Urine 1.024 (1.001-1.035)
[2021-02-22 23:52] LABS: Blood,Urine Negative (Negative); Leukocyte Esterase,Urine Negative (Negative); Nitrite,Urine Negative (Negative)
--- NOTE | 2021-02-23 00:18 | CT ---
EXAMINATION TYPE: CT abdomen pelvis wo con DATE OF EXAM: 02/23/2021 COMPARISON: None HISTORY: left flank pain. hx of kidney stones CT DLP: 1085.4 mGycm Automated exposure control for dose reduction was used. There is some patchy infiltrate at the lung bases. There is no pleural effusion. Liver spleen pancrea s appear intact. There are clips from cholecystectomy. There is gastric bariatric surgery. There is s mall hiatal hernia. There is no adrenal mass. Kidneys show normal size and contour. There is no hydronephrosis. Ureters a re not dilated. There is no retroperitoneal adenopathy. Appendix appears normal. Bladder distends smo othly. There is no inguinal hernia. There is no free fluid in the pelvis. There is no evidence of a p elvic mass. There are a few sigmoid small diverticula. There is no sign of diverticulitis. There is n o mesenteric edema. There is no ascites or free air. There is no bowel obstruction. Lumbar vertebra have normal alignment. There is narrowing of L5-S1 disc space. There is no compressio n fracture. The bony pelvis is intact. IMPRESSION: No evidence of acute abdomen and pelvis. No adverse change compared to old exam.
[2021-02-23 00:22] LABS: Basophils % (A) 0 %; Eosinophils % (A) 1 %; HCT 39.6 % (34.0-46.0); HGB 13.4 gm/dL (11.4-16.0); Lymphocytes # (A) 0.7 k/uL (1.0-4.8); Lymphocytes % (A) 19 %; MCV 91.2 fL (80.0-100.0); Mean Platelet Volume 7.7; Monocytes # (A) 0.1 k/uL (0-1.0); Monocytes % (A) 4 %; Neutrophils # (A) 2.8 k/uL (1.3-7.7); Neutrophils % (A) 75 %; Platelet Count 101 k/uL (150-450); RBC 4.34 m/uL (3.80-5.40); RDW 13.1 % (11.5-15.5); WBC 3.7 k/uL (3.8-10.6)
[2021-02-23 00:30] LABS: ALT 28 U/L (4-34); AST 53 U/L (14-36); African American GFR (CKD) >90 (>60 ml/min/1.73 sqM); Albumin 3.3 g/dL (3.5-5.0); Alkaline Phosphatase 87 U/L (38-126); Anion Gap 5 mmol/L; Blood Urea Nitrogen 13 mg/dL (7-17); Calcium 7.8 mg/dL (8.4-10.2); Carbon Dioxide 18 mmol/L (22-30); Chloride 107 mmol/L (98-107); Glucose 103 mg/dL (74-99); Non-African American GFR(CKD) 79 (>60 ml/min/1.73 sqM); Potassium 4.1 mmol/L (3.5-5.1); Sodium 130 mmol/L (137-145); Total Bilirubin 0.4 mg/dL (0.2-1.3); Total Protein 5.8 g/dL (6.3-8.2)
--- NOTE | 2021-02-23 00:36 | ED ---
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 Patient states that she recently was diagnosed with Covid 19 she's had fevers chills general malaise as well as cough and slight shortness of breath at times. Patient states that today she started having some dysuria and pain in her vulva. she states this is pretty typical of her vulvodynia. Patient states this wasn't what was concerning she states that she had some low back pain she stated she does have History of kidney stones and was concerned that she possibly had a stone or kidney infection. Patient presents emergency department today for evaluation of possible urinary tract infection she denies any abdominal pain chest pain shortness of breath at this time. She denies any leg swelling hemoptysis. Patient denies concern for sexual transmitted diseases denies new vaginal discharge or irritation Patient appears well and nontoxic distress - Related Data Home Medications Medication Instructions Recorded Confirmed Estrogens, Conjugated [Premarin] 0.625 mg PO DAILY 11/28/14 06/26/20 Citalopram Hydrobromide [CeleXA] 40 mg PO HS 04/21/18 06/26/20 Tapentadol HCl [Nucynta ER] 100 mg PO BID 04/21/18 06/26/20 Ibuprofen [Motrin Ib] 600 mg PO Q6H PRN 06/26/20 06/26/20 Pantoprazole Sodium [Protonix] 40 mg PO DAILY 06/26/20 06/26/20 Topiramate [Topamax] 100 mg PO BID 06/26/20 06/26/20 ALPRAZolam [Xanax] 0.25 mg PO BID PRN 06/27/20 06/27/20 Previous Rx's Medication Instructions Recorded Cyclobenzaprine [Flexeril] 10 mg PO TID PRN #30 tab 06/28/20 HYDROcodone/APAP 7.5-325MG [[place] 1 tab PO Q4H PRN #20 tab 06/28/20 7.5-325] dexAMETHasone [Hexadrol] 4 mg PO TID #30 tab 06/28/20 polyethylene glycoL 3350 [Miralax] 17 gm PO DAILY PRN #15 packet 06/28/20 Allergies Allergy/AdvReac Type Severity Reaction Status Date / Time No Known Allergies Allergy Verified 12/09/20 09:19 Review of Systems ROS Statement: Those systems with pertinent positive or pertinent negative responses have been documented in the HPI. ROS Other: All systems not noted in ROS Statement are negative. 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 Past Anesthesia/Blood Transfusion Reactions: No Reported Reaction Past Psychological History: Depression Smoking Status: Never smoker Past Alcohol Use History: None Reported Past Drug Use History: Marijuana - Past Family History Mother Family Medical History: No Reported History General Exam - General Exam Comments Initial Comments: General: The patient is awake and alert, in no distress, and does not appear acutely ill. Eye: Pupils are equal, round and reactive to light, extra-ocular movements are intact. No nystagmus. There is normal conjunctiva bilaterally. No signs of icterus. Ears, nose, mouth and throat: There are moist mucous membranes and no oral lesions. Neck: The neck is supple, there is no tenderness or JVD. Cardiovascular: There is a regular rate and rhythm. No murmur, rub or gallop is appreciated. Respiratory: Lungs are clear to auscultation, respirations are non-labored, breath sounds are equal. No wheezes, stridor, rales, or rhonchi. Gastrointestinal: Soft, non-distended, non-tender abdomen without masses or organomegaly noted. There is no rebound or guarding present. No CVA tenderness. Musculoskeletal: Normal ROM, no tenderness. Strength 5/5. Sensation intact. Pulses equal bilaterally 2+. Neurological: A&O x 3. CN II-XII intact grossly, There are no obvious motor or sensory deficits. Coordination appears grossly intact. Speech is normal. Skin: Skin is warm and dry and no rashes or lesions are noted. Psychiatric: Cooperative, appropriate mood & affect, normal judgment. Course Vital Signs 02/22/21 02/23/21 23:11 01:20 Temperature 100.1 F H 98.5 F Pulse Rate 93 83 Respiratory 18 18 Rate Blood Pressure 109/54 104/60 O2 Sat by Pulse 95 94 L Oximetry Medical Decision Making - Medical Decision Making I feel patient labs are consistent with viral illness with leukopenia. CT no stone. Urinalysis is appear overtly infected. Patient does have a history of vulvodynia. And states that the pain appears atypical that. The back pain I suspect is secondary to her Covid19 infection body aches. She denies any fall or trauma. At this time feel patient can is stable for discharge with outpatient follow-up, symptomatically treatment of fever/bodyaches with antipyretics outpatient--patient is agreeable to this care plan as well as marbin wells at this time. Attending agreeable to this care plan. - Lab Data Result diagrams: 02/23/21 00:06 02/23/21 00:06 Lab Results 02/22/21 02/23/21 02/23/21 Range/Units 23:22 00:06 00:06 WBC 3.7 L (3.8-10.6) k/uL RBC 4.34 (3.80-5.40) m/uL Hgb 13.4 (11.4-16.0) gm/dL Hct 39.6 (34.0-46.0) % MCV 91.2 (80.0-100.0) fL MCH 31.0 (25.0-35.0) pg MCHC 34.0 (31.0-37.0) g/dL RDW 13.1 (11.5-15.5) % Plt Count 101 L (150-450) k/uL MPV 7.7 Neutrophils % 75 % Lymphocytes % 19 % Monocytes % 4 % Eosinophils % 1 % Basophils % 0 % Neutrophils # 2.8 (1.3-7.7) k/uL Lymphocytes # 0.7 L (1.0-4.8) k/uL Monocytes # 0.1 (0-1.0) k/uL Eosinophils # 0.0 (0-0.7) k/uL Basophils # 0.0 (0-0.2) k/uL Sodium 130 L (137-145) mmol/L Potassium 4.1 (3.5-5.1) mmol/L Chloride 107 (98-107) mmol/L Carbon Dioxide 18 L (22-30) mmol/L Anion Gap 5 mmol/L BUN 13 (7-17) mg/dL Creatinine 0.85 (0.52-1.04) mg/dL Est GFR (CKD-EPI)AfAm >90 (>60 ml/min/1.73 sqM) Est GFR (CKD-EPI)NonAf 79 (>60 ml/min/1.73 sqM) Glucose 103 H (74-99) mg/dL Calcium 7.8 L (8.4-10.2) mg/dL Total Bilirubin 0.4 (0.2-1.3) mg/dL AST 53 H (14-36) U/L ALT 28 (4-34) U/L Alkaline Phosphatase 87 (38-126) U/L Total Protein 5.8 L (6.3-8.2) g/dL Albumin 3.3 L (3.5-5.0) g/dL Urine Color Yellow Urine Appearance Clear (Clear) Urine pH 7.0 (5.0-8.0) Ur Specific [place] 1.024 (1.001-1.035) Urine Protein Trace H (Negative) Urine Glucose (UA) Negative (Negative) Urine Ketones Trace H (Negative) Urine Blood Negative (Negative) Urine Nitrite Negative (Negative) Urine Bilirubin Negative (Negative) Urine Urobilinogen 2.0 (<2.0) mg/dL Ur Leukocyte Esterase Negative (Negative) Disposition Clinical Impression: History of vulvodynia, Dysuria, Fever, COVID-19, Body aches, Low back pain Disposition: HOME SELF-CARE Condition: Good Instructions (If sedation given, give patient instructions): Coronavirus Disease 2019 (COVID-19) Additional Instructions: Please use medication as discussed. Please follow-up with family doctor in the next 2 days. Please return to emergency room if the symptoms increase or worsen or for any other concerns. Is patient prescribed a controlled substance at d/c from ED?: No Referrals: Mirna Worley MD [Primary Care Provider] - 1-2 days Time of Disposition: 00:36
[2021-02-23 01:21] VITALS: BP 104/60; PULSE 83; TEMP 98.5
== END 2021-02-23 01:21 | disposition home or self-care (01) ==
LOC: EC 23:05
DX: M54.5 Low back pain (principal); R30.0 Dysuria; U07.1 COVID-19; Z79.899 Other long term (current) drug therapy; F32.9 Major depressive disorder, single episode, unspecified; Z90.49 Acquired absence of other specified parts of digestive tract; Z90.710 Acquired absence of both cervix and uterus; Z90.89 Acquired absence of other organs; Z98.84 Bariatric surgery status
CPT/HCPCS: 36415; 80053; 85025; 81003; 74176; 99284; 96374; 96375; 96361; J2405; J1885

== ENCOUNTER 2021-02-25 08:33 | Inpatient (IN) | payer BC ==
[2021-02-25] MEDS ORDERED: DEXAMETHASONE SOD PHOSPHATE 10 MG/ML 1 ML VIAL IV STA (09:02)
--- NOTE | 2021-02-25 09:02 | ED ---
General Adult HPI - General Chief complaint: Shortness of Breath Stated complaint: SUSANNE/covid+ Time Seen by Provider: 02/25/21 08:35 Source: patient Mode of arrival: ambulatory Limitations: no limitations - History of Present Illness Initial comments: Dictation was produced using [employer] dictation software. please excuse any grammatical, word or spelling errors. This patient was cared for during a federal and state declared state of emergency secondary to Covid 19 Chief Complaint: 55-year-old female with no significant past medical history presents to the emergency department for shortness of breath. Patient has been Covid positive for the last 8 days History of Present Illness: 55-year-old female she denies any significant past medical history. Patient states that she's been having worsening dyspnea especially worse on exertion. Patient states that several revisions in her household tested positive for Covid 19. Patient denies any history of diabetes. Denies any history of lung disease. Patient was brought in by EMS. EMS reports that patient was hypoxic with initial measurement of 80%. Patient does not use home O2. Patient was seen here recently for myalgias. She was discharged at that time. The ROS documented in this emergency department record has been reviewed and confirmed by me. Those systems with pertinent positive or negative responses have been documented in the HPI. All other systems are other negative and/or noncontributory. PHYSICAL EXAM: General Impression: Alert and oriented x3, mild dyspneic HEENT: Normocephalic atraumatic, extra-ocular movements intact, pupils equal and reactive to light bilaterally, mucous membranes moist. Cardiovascular: Heart regular rate and rhythm Chest: Able to complete full sentences, no retractions, no tachypnea Abdomen: abdomen soft, non-tender, non-distended, no organomegaly Musculoskeletal: Pulses present and equal in all extremities, no peripheral edema Motor: no focal deficits noted Neurological: CN II-XII grossly intact, no focal motor or sensory deficits noted Skin: Intact with no visualized rashes Psych: Normal affect and mood ED course: 55-year-old female presents to the emergency department for acute hypoxic respiratory failure secondary to Covid 19. As upon arrival shows 86% on room air, respiratory rate of 26. Patient placed on 4 L as a cannula and had redness measuring 96%. Patient given 10 mg of IV Decadron. Limited evaluation obtained. CBC unremarkable. D-dimer is slightly elevated at 0.72. Metabolic panel is unremarkable. Patient does have elevated inflammatory markers. Troponin is negative. Chest x-ray shows diffuse bilateral patchy pneumonia. Patient be admitted for hypoxic respiratory failure from over 19. Patient care will be transitioned to Dr. Lovelace on behalf of [facility] hospitalist group. EKG interpretation: Ventricular rate 86, normal sinus rhythm,. 144, care 72, QTc 433. No [place] prolongation, no QTC prolongation, no ST or T-wave changes noted. . Overall, this EKG is unremarkable - Related Data Home Medications Medication Instructions Recorded Confirmed Estrogens, Conjugated [Premarin] 0.625 mg PO DAILY 11/28/14 02/25/21 Citalopram Hydrobromide [CeleXA] 40 mg PO DAILY 04/21/18 02/25/21 Tapentadol HCl [Nucynta ER] 100 mg PO BID 04/21/18 02/25/21 Topiramate [Topamax] 100 mg PO BID 06/26/20 02/25/21 ALPRAZolam [Xanax] 0.25 mg PO BID PRN 02/25/21 02/25/21 Cyclobenzaprine [Flexeril] 10 mg PO DAILY@1200 02/25/21 02/25/21 Cyclobenzaprine [Flexeril] 20 mg PO HS 02/25/21 02/25/21 Allergies Allergy/AdvReac Type Severity Reaction Status Date / Time No Known Allergies Allergy Verified 02/25/21 10:05 Review of Systems ROS Statement: Those systems with pertinent positive or pertinent negative responses have been documented in the HPI. ROS Other: All systems not noted in ROS Statement are negative. 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 Past Anesthesia/Blood Transfusion Reactions: No Reported Reaction Past Psychological History: Depression Smoking Status: Never smoker Past Alcohol Use History: None Reported Past Drug Use History: Marijuana - Past Family History Mother Family Medical History: No Reported History General Exam Limitations: no limitations Course Vital Signs 02/25/21 02/25/21 02/25/21 08:37 08:46 10:31 Temperature 98.9 F Pulse Rate 88 90 89 Respiratory 26 H 24 20 Rate Blood Pressure 135/69 135/77 O2 Sat by Pulse 86 L 96 98 Oximetry Medical Decision Making - Lab Data Result diagrams: 02/25/21 08:54 02/25/21 08:54 Lab Results 02/25/21 02/25/21 02/25/21 Range/Units 08:54 08:54 08:54 WBC 3.8 (3.8-10.6) k/uL RBC 4.57 (3.80-5.40) m/uL Hgb 14.0 (11.4-16.0) gm/dL Hct 41.5 (34.0-46.0) % MCV 90.8 (80.0-100.0) fL MCH 30.6 (25.0-35.0) pg MCHC 33.7 (31.0-37.0) g/dL RDW 13.4 (11.5-15.5) % Plt Count 149 L (150-450) k/uL MPV 7.8 Neutrophils % 78 % Lymphocytes % 14 % Monocytes % 6 % Eosinophils % 0 % Basophils % 0 % Neutrophils # 3.0 (1.3-7.7) k/uL Lymphocytes # 0.5 L (1.0-4.8) k/uL Monocytes # 0.2 (0-1.0) k/uL Eosinophils # 0.0 (0-0.7) k/uL Basophils # 0.0 (0-0.2) k/uL D-Dimer 0.72 H (<0.60) mg/L FEU Sodium 132 L (137-145) mmol/L Potassium 4.0 (3.5-5.1) mmol/L Chloride 103 (98-107) mmol/L Carbon Dioxide 24 (22-30) mmol/L Anion Gap 5 mmol/L BUN 13 (7-17) mg/dL Creatinine 0.97 (0.52-1.04) mg/dL Est GFR (CKD-EPI)AfAm 77 (>60 ml/min/1.73 sqM) Est GFR (CKD-EPI)NonAf 67 (>60 ml/min/1.73 sqM) Glucose 105 H (74-99) mg/dL Plasma Lactic Acid Christian (0.7-2.0) mmol/L Calcium 7.8 L (8.4-10.2) mg/dL Total Bilirubin 0.5 (0.2-1.3) mg/dL AST 185 H (14-36) U/L ALT 75 H (4-34) U/L Alkaline Phosphatase 127 H (38-126) U/L Troponin I (0.000-0.034) ng/mL Total Protein 5.6 L (6.3-8.2) g/dL Albumin 3.0 L (3.5-5.0) g/dL 02/25/21 02/25/21 Range/Units 08:54 08:54 WBC (3.8-10.6) k/uL RBC (3.80-5.40) m/uL Hgb (11.4-16.0) gm/dL Hct (34.0-46.0) % MCV (80.0-100.0) fL MCH (25.0-35.0) pg MCHC (31.0-37.0) g/dL RDW (11.5-15.5) % Plt Count (150-450) k/uL MPV Neutrophils % % Lymphocytes % % Monocytes % % Eosinophils % % Basophils % % Neutrophils # (1.3-7.7) k/uL Lymphocytes # (1.0-4.8) k/uL Monocytes # (0-1.0) k/uL Eosinophils # (0-0.7) k/uL Basophils # (0-0.2) k/uL D-Dimer (<0.60) mg/L FEU Sodium (137-145) mmol/L Potassium (3.5-5.1) mmol/L Chloride (98-107) mmol/L Carbon Dioxide (22-30) mmol/L Anion Gap mmol/L BUN (7-17) mg/dL Creatinine (0.52-1.04) mg/dL Est GFR (CKD-EPI)AfAm (>60 ml/min/1.73 sqM) Est GFR (CKD-EPI)NonAf (>60 ml/min/1.73 sqM) Glucose (74-99) mg/dL Plasma Lactic Acid [place] 1.0 (0.7-2.0) mmol/L Calcium (8.4-10.2) mg/dL Total Bilirubin (0.2-1.3) mg/dL AST (14-36) U/L ALT (4-34) U/L Alkaline Phosphatase (38-126) U/L Troponin I <0.012 (0.000-0.034) ng/mL Total Protein (6.3-8.2) g/dL Albumin (3.5-5.0) g/dL Disposition Clinical Impression: COVID-19 Disposition: ADMITTED IP TO THIS HOSP Condition: Fair Referrals: Mirna Worley MD [Primary Care Provider] - 1-2 days Decision Time: 10:53
[2021-02-25 09:42] LABS: Basophils % (A) 0 %; Eosinophils % (A) 0 %; HCT 41.5 % (34.0-46.0); Lymphocytes # (A) 0.5 k/uL (1.0-4.8); Lymphocytes % (A) 14 %; MCH 30.6 pg (25.0-35.0); MCHC 33.7 g/dL (31.0-37.0); MCV 90.8 fL (80.0-100.0); Mean Platelet Volume 7.8; Monocytes # (A) 0.2 k/uL (0-1.0); Monocytes % (A) 6 %; Neutrophils % (A) 78 %; Platelet Count 149 k/uL (150-450); RBC 4.57 m/uL (3.80-5.40); RDW 13.4 % (11.5-15.5); WBC 3.8 k/uL (3.8-10.6)
[2021-02-25 09:48] LABS: Calcium 7.8 mg/dL (8.4-10.2); Total Bilirubin 0.5 mg/dL (0.2-1.3); Total Protein 5.6 g/dL (6.3-8.2)
[2021-02-25] MEDS ORDERED: ONDANSETRON 4 MG/2 ML VIAL IVP STA (10:10)
[2021-02-25] MEDS: ZINC SULFATE 220 MG CAP PO SCH (10:28)
[2021-02-25] MEDS: ACETAMINOPHEN TAB 325 MG TAB PO PRN (10:28)
[2021-02-25] MEDS: ASCORBIC ACID 500 MG TAB PO SCH ×2 (10:28→22:39)
--- NOTE | 2021-02-25 10:49 | XR ---
EXAMINATION TYPE: XR chest 1V portable DATE OF EXAM: 02/25/2021 COMPARISON: 09-02 HISTORY: Cough TECHNIQUE: Single frontal view of the chest is obtained. FINDINGS: Diffuse bilateral patchy areas of infiltrate. Postsurgical change overlying the cervical s pine. Heart size normal. Tiny effusions not excluded. No pneumothorax. IMPRESSION: Diffuse bilateral patchy pneumonia.
[2021-02-25] MEDS ORDERED: NALOXONE 0.4 MG/ML 1 ML VIAL IV PRN (10:54)
[2021-02-25] MEDS ORDERED: SODIUM CHLORIDE 0.9% 1,000 ML IV SCH (11:00)
[2021-02-25] MEDS ORDERED: CYCLOBENZAPRINE 10 MG TAB PO PRN (12:39)
--- NOTE | 2021-02-25 12:41 | P.HPIM ---
History of Present Illness Patient is pleasant 55-year-old the female came in with complains of shortness of breath diarrhea generalized body aches has been going on for a about 9 days and patient was tested for Covid 8 days ago which was positive. Patient has mildly elevated d-dimer of 0.7 to elevated liver enzymes sodium is 132, patient was hypoxic 6 chest x-ray showing diffuse bilateral patchy obesity is. I do not have any inflammatory markers available at this time. Review of Systems REVIEW OF SYSTEMS: CONSTITUTIONAL: As mentioned in HPI HEENT: No recent visual problems or hearing problems. Denied any sore throat. CARDIOVASCULAR: No chest pain, orthopnea, PND, no palpitations, no syncope. PULMONARY: No shortness of breath, no cough, no hemoptysis. GASTROINTESTINAL: no vomiting, no abdominal pain. NEUROLOGICAL: No headaches, no weakness, no numbness. HEMATOLOGICAL: Denies any bleeding or petechiae. GENITOURINARY: Denies any burning micturition, frequency, or urgency. MUSCULOSKELETAL/RHEUMATOLOGICAL: Denies any joint pain, swelling, or any muscle pain. ENDOCRINE: Denies any polyuria or polydipsia. The rest of the 14-point review of systems is negative. 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 Past Anesthesia/Blood Transfusion Reactions: No Reported Reaction Past Psychological History: Depression Smoking Status: Never smoker Past Alcohol Use History: None Reported Past Drug Use History: Marijuana - Past Family History Mother Family Medical History: No Reported History Medications and Allergies Home Medications Medication Instructions Recorded Confirmed Type Estrogens, Conjugated [Premarin] 0.625 mg PO DAILY 11/28/14 02/25/21 History Citalopram Hydrobromide [CeleXA] 40 mg PO DAILY 04/21/18 02/25/21 History Tapentadol HCl [Nucynta ER] 100 mg PO BID 04/21/18 02/25/21 History Topiramate [Topamax] 100 mg PO BID 06/26/20 02/25/21 History ALPRAZolam [Xanax] 0.25 mg PO BID PRN 02/25/21 02/25/21 History Cyclobenzaprine [Flexeril] 10 mg PO DAILY@1200 02/25/21 02/25/21 History Cyclobenzaprine [Flexeril] 20 mg PO HS 02/25/21 02/25/21 History Allergies Allergy/AdvReac Type Severity Reaction Status Date / Time No Known Allergies Allergy Verified 02/25/21 10:05 Physical Exam Vitals: Vital Signs Temp Pulse Resp BP Pulse Ox 02/25/21 10:31 89 20 135/77 98 02/25/21 08:46 90 24 96 02/25/21 08:37 98.9 F 88 26 H 135/69 86 L Intake and Output 02/24/21 02/25/21 02/25/21 22:59 06:59 14:59 Other: Weight 95.254 kg PHYSICAL EXAMINATION: GENERAL: The patient is alert and oriented x3, patient is on respiratory distress. Well developed, well nourished. HEENT: Pupils are round and equally reacting to light. EOMI. No scleral icterus. No conjunctival pallor. Normocephalic, atraumatic. No pharyngeal erythema. No thyromegaly. CARDIOVASCULAR: S1 and S2 present. No murmurs, rubs, or gallops. PULMONARY: Chest is clear to auscultation, no wheezing or crackles. ABDOMEN: Soft, nontender, nondistended, normoactive bowel sounds. No palpable organomegaly. MUSCULOSKELETAL: No joint swelling or deformity. EXTREMITIES: No cyanosis, clubbing, or pedal edema. NEUROLOGICAL: Gross neurological examination did not reveal any focal deficits. SKIN: No rashes. Results CBC & Chem 7: 02/25/21 08:54 02/25/21 08:54 Labs: Abnormal Lab Results - Last 24 Hours (Table) 02/25/21 02/25/21 02/25/21 Range/Units 08:54 08:54 08:54 Plt Count 149 L (150-450) k/uL Lymphocytes # 0.5 L (1.0-4.8) k/uL D-Dimer 0.72 H (<0.60) mg/L FEU Sodium 132 L (137-145) mmol/L Glucose 105 H (74-99) mg/dL Calcium 7.8 L (8.4-10.2) mg/dL AST 185 H (14-36) U/L ALT 75 H (4-34) U/L Alkaline Phosphatase 127 H (38-126) U/L Total Protein 5.6 L (6.3-8.2) g/dL Albumin 3.0 L (3.5-5.0) g/dL Assessment and Plan Plan: -Acute hypoxic respiratory failure: Secondary to covid 19 pneumonia. Patient will be started on Decadron -Hypovolemic hyponatremia secondary to diarrhea from her Covid. Patient was sta rted on IV fluids will repeat basic metabolic profile again tomorrow -Elevated liver enzymes secondary to widely illness -Depression DVT prophylaxis Lovenox GI prophylaxis Pepcid
[2021-02-25] MEDS: ONDANSETRON 4 MG/2 ML VIAL IVP PRN (13:08)
[2021-02-25] MEDS: FAMOTIDINE 20 MG TAB PO SCH ×2 (13:11→22:39)
[2021-02-25] MEDS: SODIUM CHLORIDE 0.9% 1,000 ML IV SCH ×2 (13:12→22:48)
[2021-02-25] MEDS ORDERED: REMDESIVIR 200 MG in SODIUM CHLORIDE 0.9% 250 ML IVPB ONE (20:30)
[2021-02-25] MEDS: TOPIRAMATE 100 MG TAB PO SCH (22:16)
[2021-02-25] MEDS: TAPENTADOL HCL PO SCH (22:16)
[2021-02-26] MEDS: FAMOTIDINE 20 MG TAB PO SCH ×2 (08:05→20:47)
[2021-02-26] MEDS: dexAMETHasone 2 MG TAB PO SCH (08:05)
[2021-02-26] MEDS: CITALOPRAM HYDROBROMIDE 20 MG TAB PO SCH (08:05)
[2021-02-26] MEDS: ASCORBIC ACID 500 MG TAB PO SCH ×2 (08:05→20:47)
[2021-02-26] MEDS: TOPIRAMATE 100 MG TAB PO SCH ×2 (08:05→20:47)
[2021-02-26] MEDS: ENOXAPARIN 40 MG/0.4 ML SYRINGE SQ SCH (08:05)
[2021-02-26] MEDS: ZINC SULFATE 220 MG CAP PO SCH (08:05)
[2021-02-26] MEDS: ESTROGENS, CONJUGATED 0.625 MG TAB PO SCH (08:05)
[2021-02-26] MEDS: SODIUM CHLORIDE 0.9% 1,000 ML IV SCH ×3 (08:06→21:04)
[2021-02-26] MEDS: TAPENTADOL HCL PO SCH ×2 (08:10→17:52)
[2021-02-26] MEDS: ONDANSETRON 4 MG/2 ML VIAL IVP PRN ×2 (09:55→20:58)
[2021-02-26] MEDS: ACETAMINOPHEN TAB 325 MG TAB PO PRN (09:55)
[2021-02-26 09:59] LABS: African American GFR (CKD) >90 (>60 ml/min/1.73 sqM); Anion Gap 5 mmol/L; Blood Urea Nitrogen 13 mg/dL (7-17); Calcium 7.6 mg/dL (8.4-10.2); Carbon Dioxide 21 mmol/L (22-30); Chloride 111 mmol/L (98-107); Glucose 116 mg/dL (74-99); Non-African American GFR(CKD) 87 (>60 ml/min/1.73 sqM); Potassium 3.8 mmol/L (3.5-5.1); Sodium 137 mmol/L (137-145)
[2021-02-26] MEDS: ALBUTEROL HFA INHALER INHALATION PRN ×2 (11:02→20:33)
--- NOTE | 2021-02-26 16:12 | P.PN ---
Subjective Progress Note Date: 02/26/21 Patient is pleasant 55-year-old the female came in with complains of shortness of breath diarrhea generalized body aches has been going on for a about 9 days and patient was tested for Covid 8 days ago which was positive. Patient has mildly elevated d-dimer of 0.7 to elevated liver enzymes sodium is 132, patient was hypoxic 6 chest x-ray showing diffuse bilateral patchy obesity is. I do not have any inflammatory markers available at this time. 02/26/2021 Patient is seen and evaluated in follow-up continues to have diarrhea along with generalized body aches and states that she feels her breathing has gotten worse and is dyspneic with minimal exertion. Review of systems: Constitutional: Reports fatigue and generalized body aches Cardiovascular: No reports of chest pain or palpitations Respiratory: Reports increased shortness of breath and cough GI: No reports of nausea, vomiting, reports diarrhea : No reports of dysuria or retention Neurovascular: reports of feeling weak All medications have been reviewed Objective - Vital Signs Vital signs: Vital Signs Temp 97.5 F L 02/26/21 10:22 Pulse 78 02/26/21 10:22 Resp 18 02/26/21 10:22 BP 121/75 02/26/21 10:22 Pulse Ox 88 L 02/26/21 10:30 Intake & Output 02/25/21 02/26/21 02/26/21 18:59 06:59 18:59 Intake Total 800 Balance 800 Weight 95.254 kg Intake: IV 800 Sodium Chloride 0.9% 1, 800 000 ml @ 100 mls/hr IV . Q10H [facility] Rx#:[id number] - Exam GENERAL: The patient is alert and oriented x3, patient is in respiratory distress. Well developed, well nourished. HEENT: Pupils are round and equally reacting to light. EOMI. No scleral icterus. No conjunctival pallor. Normocephalic, atraumatic. No pharyngeal erythema. No thyromegaly. CARDIOVASCULAR: S1 and S2 present. No murmurs, rubs, or gallops. PULMONARY: Chest is clear to auscultation, no wheezing or crackles. ABDOMEN: Soft, nontender, nondistended, normoactive bowel sounds. No palpable organomegaly. MUSCULOSKELETAL: No joint swelling or deformity. EXTREMITIES: No cyanosis, clubbing, or pedal edema. NEUROLOGICAL: Gross neurological examination did not reveal any focal deficits. SKIN: No rashes. - Labs CBC & Chem 7: 02/25/21 08:54 02/26/21 09:24 Labs: Abnormal Lab Results - Last 24 Hours (Table) 02/26/21 Range/Units 09:24 Chloride 111 H (98-107) mmol/L Carbon Dioxide 21 L (22-30) mmol/L Glucose 116 H (74-99) mg/dL Calcium 7.6 L (8.4-10.2) mg/dL Assessment and Plan Assessment: -Acute hypoxic respiratory failure: Secondary to covid 19 pneumonia. Patient was started on Decadron and is being started on Remdesivir -Hypovolemic hyponatremia secondary to diarrhea from her Covid. Patient was started on IV fluids will repeat basic metabolic profile again tomorrow, sodium improved at 137 and potassium is 3.8 current creatinine is 0.79 -Elevated liver enzymes secondary to Covid, will repeat liver functions -Depression -DVT prophylaxis Lovenox -GI prophylaxis Pepcid Plan: Continue with current medications. Patient is being started on Remdesivir with pulmonary Dr. Maciel following. Continue with dexamethasone along with vitamin and zinc supplements and Lovenox. Patient is having worsening shortness of breath and dyspnea with minimal exertion and is currently on 8 L high flow nasal cannula. Patient is continued with diarrhea with poor oral intake and generalized body aches. Will repeat a.m. labs and continue to monitor closely. Continue with IV fluids as well.
--- NOTE | 2021-02-26 17:21 | P.PN ---
Subjective Progress Note Date: 02/26/21 Principal diagnosis: Acute hypoxic respiratory failure Bilateral acutecovid 19 pneumonia Hyponatremia Elevated d-dimer Likely ongoing acute inflammatory response 02/26/2021, patient seen eval examined during the rounds labs reviewed medications reviewed care plan discussed, patient continued to be short of breath, denies any chest pain, remains on 8 L oxygen, patient has been asked to do deep breathing exercises incentive spirometry on a regular basis, This is a 55-year-old female seen evaluated examined emergency department, patient has a multiple family members which were diagnosed positive for cold with initially she was asymptomatic diagnosis: Weight +8 days ago however symptoms started developing about 5-6 days ago with increasing shortness of breath hypoxia and desaturation, on presented into the emergency department patient was hypoxic with saturation of just 80%, she has been placed on 4 L nasal cannula oxygen saturation improves to 96%,, patient's lab is significant for elevated d-dimer 0.7 to, mild thrombocytopenia 149, sodium is decreased 132, chest x-ray positive for diffuse infiltrate Objective - Vital Signs Vital signs: Vital Signs Temp 97.7 F 02/26/21 13:43 Pulse 83 02/26/21 13:43 Resp 20 02/26/21 13:43 BP 118/77 02/26/21 13:43 Pulse Ox 91 L 02/26/21 13:43 Intake & Output 02/25/21 02/26/21 02/26/21 18:59 06:59 18:59 Intake Total 800 Balance 800 Weight 95.254 kg Intake: IV 800 Sodium Chloride 0.9% 1, 800 000 ml @ 100 mls/hr IV . Q10H [facility] Rx#:[id number] - Exam - Constitutional General appearance: average body habitus, disheveled - EENT Eyes: EOMI, PERRLA Ears: bilateral: normal - Neck Neck: normal ROM Carotids: bilateral: upstroke normal Thyroid: bilateral: normal size - Respiratory Respiratory: bilateral: diminished - Cardiovascular Rhythm: regular Heart sounds: normal: S1, S2 - Integumentary Integumentary: normal turgor - Neurologic Neurologic: CNII-XII intact - Musculoskeletal Musculoskeletal: gait normal, generalized weakness, strength equal bilaterally - Psychiatric Psychiatric: A&O x's 3, appropriate affect, intact judgment & insight - Labs CBC & Chem 7: 02/25/21 08:54 02/26/21 09:24 Labs: Abnormal Lab Results - Last 24 Hours (Table) 02/26/21 Range/Units 09:24 Chloride 111 H (98-107) mmol/L Carbon Dioxide 21 L (22-30) mmol/L Glucose 116 H (74-99) mg/dL Calcium 7.6 L (8.4-10.2) mg/dL Assessment and Plan Assessment: Acute hypoxic respiratory failure Bilateral acutecovid 19 pneumonia Hyponatremia Elevated d-dimer Likely ongoing acute inflammatory response Plan: IV remdesivir Steroids in form of Decadron Supplemental oxygen Deep breathing exercise incentive spirometry Lovenox Inflammatory parameters Continue supportive care and further recommendations pending as per clinical response of the patient Time with Patient: Greater than 30
[2021-02-26] MEDS: ALPRAZolam 0.25 MG TAB PO PRN (17:30)
[2021-02-26] MEDS: REMDESIVIR 100 MG in SODIUM CHLORIDE 0.9% 250 ML IVPB SCH (20:47)
[2021-02-26 21:21] LABS: C Reactive Protein 9.4 mg/dL (0.0-0.8); Ferritin 912.5 ng/mL (10.0-291.0)
[2021-02-27] MEDS: dexAMETHasone 2 MG TAB PO SCH (07:27)
[2021-02-27] MEDS: ONDANSETRON 4 MG/2 ML VIAL IVP PRN (07:27)
[2021-02-27] MEDS: ENOXAPARIN 40 MG/0.4 ML SYRINGE SQ SCH (07:27)
[2021-02-27] MEDS: TAPENTADOL HCL PO SCH ×2 (07:27→22:32)
[2021-02-27] MEDS: ESTROGENS, CONJUGATED 0.625 MG TAB PO SCH (07:28)
[2021-02-27] MEDS: TOPIRAMATE 100 MG TAB PO SCH ×2 (07:28→22:43)
[2021-02-27] MEDS: CITALOPRAM HYDROBROMIDE 20 MG TAB PO SCH (07:28)
[2021-02-27] MEDS: ASCORBIC ACID 500 MG TAB PO SCH ×2 (07:28→22:32)
[2021-02-27] MEDS: ZINC SULFATE 220 MG CAP PO SCH (07:28)
[2021-02-27] MEDS: FAMOTIDINE 20 MG TAB PO SCH ×2 (07:30→22:32)
[2021-02-27] MEDS: ALBUTEROL HFA INHALER INHALATION PRN ×4 (07:35→20:25)
[2021-02-27] MEDS: ALPRAZolam 0.25 MG TAB PO PRN ×2 (08:34→22:31)
[2021-02-27] MEDS: LOPERAMIDE 2 MG CAP PO PRN (11:37)
[2021-02-27] MEDS: SODIUM CHLORIDE 0.9% 1,000 ML IV SCH (11:37)
--- NOTE | 2021-02-27 14:15 | P.PN ---
Subjective Progress Note Date: 02/27/21 Principal diagnosis: Acute hypoxic respiratory failure Bilateral acutecovid 19 pneumonia Hyponatremia Elevated d-dimer Likely ongoing acute inflammatory response February 27 2021, patient seen and evaluated examined during the rounds labs reviewed medications reviewed, shortness of breath slightly better still have intermittent cough, FiO2 have been 8 L nasal cannula 02/26/2021, patient seen eval examined during the rounds labs reviewed medications reviewed care plan discussed, patient continued to be short of breath, denies any chest pain, remains on 8 L oxygen, patient has been asked to do deep breathing exercises incentive spirometry on a regular basis, This is a 55-year-old female seen evaluated examined emergency department, patient has a multiple family members which were diagnosed positive for cold with initially she was asymptomatic diagnosis: Weight +8 days ago however symptoms started developing about 5-6 days ago with increasing shortness of breath hypoxia and desaturation, on presented into the emergency department patient was hypoxic with saturation of just 80%, she has been placed on 4 L nasal cannula oxygen saturation improves to 96%,, patient's lab is significant for elevated d-dimer 0.7 to, mild thrombocytopenia 149, sodium is decreased 132, chest x-ray positive for diffuse infiltrate Objective - Vital Signs Vital signs: Vital Signs Temp 97.6 F 02/27/21 09:37 Pulse 76 02/27/21 09:37 Resp 20 02/27/21 09:37 BP 126/67 02/27/21 09:37 Pulse Ox 94 L 02/27/21 09:37 Intake & Output 02/26/21 02/27/21 02/27/21 18:59 06:59 18:59 Intake Total 800 Balance 800 Intake: IV 800 Sodium Chloride 0.9% 1, 800 000 ml @ 100 mls/hr IV . Q10H [facility] Rx#:[id number] Other: Voiding Method Bedside Commode Bedpan # Voids 5 - Exam - Constitutional General appearance: average body habitus, disheveled - EENT Eyes: EOMI, PERRLA Ears: bilateral: normal - Neck Neck: normal ROM Carotids: bilateral: upstroke normal Thyroid: bilateral: normal size - Respiratory Respiratory: bilateral: diminished - Cardiovascular Rhythm: regular Heart sounds: normal: S1, S2 - Integumentary Integumentary: normal turgor - Neurologic Neurologic: CNII-XII intact - Musculoskeletal Musculoskeletal: gait normal, generalized weakness, strength equal bilaterally - Psychiatric Psychiatric: A&O x's 3, appropriate affect, intact judgment & insight - Labs CBC & Chem 7: 02/25/21 08:54 02/26/21 09:24 Labs: Abnormal Lab Results - Last 24 Hours (Table) 02/26/21 02/27/21 Range/Units 09:24 07:26 D-Dimer 1.10 H (<0.60) mg/L FEU Ferritin 912.5 H (10.0-291.0) ng/mL Lactate Dehydrogenase 595 H (120-246) U/L C-Reactive Protein 9.4 H (0.0-0.8) mg/dL Assessment and Plan Assessment: Acute hypoxic respiratory failure Bilateral acutecovid 19 pneumonia Hyponatremia, slowly improving Elevated d-dimer Likely ongoing acute inflammatory response Plan: IV remdesivir Steroids in form of Decadron Supplemental oxygen Deep breathing exercise incentive spirometry Lovenox Inflammatory parameters Continue supportive care and further recommendations pending as per clinical res ponse of the patient Time with Patient: Greater than 30
--- NOTE | 2021-02-27 15:42 | P.PN ---
Subjective Progress Note Date: 02/27/21 Patient is pleasant 55-year-old the female came in with complains of shortness of breath diarrhea generalized body aches has been going on for a about 9 days and patient was tested for Covid 8 days ago which was positive. Patient has mildly elevated d-dimer of 0.7 to elevated liver enzymes sodium is 132, patient was hypoxic 6 chest x-ray showing diffuse bilateral patchy obesity is. I do not have any inflammatory markers available at this time. 02/26/2021 Patient is seen and evaluated in follow-up continues to have diarrhea along with generalized body aches and states that she feels her breathing has gotten worse and is dyspneic with minimal exertion. 02/27/2021 She is seen and evaluated this morning currently sitting up in bed very tearful stating she is afraid that she is worsening and is not going to survive from this. Patient states she has also had multiple conversations with her family members about not wanting to be on a mechanical vent and feels she is going to be intubated soon. Patient is currently maintained on 8 L high flow via nasal cannula with 93-97% oxygen saturation. Patient appears to have a component of anxiety and depression. She denies any suicidal ideation or thoughts of harming herself. Patient's CODE STATUS currently is full code and discussed with her in detail about what this means. Patient does have incentive spirometer at the bedside and instructed and encouraged the patient to continue using at least 10 times every hour while awake along with increasing activity and sitting out of the bed in the chair throughout the day. Patient reports continued diarrhea and Imodium has been added. D-dimer is elevated at 1.10 and will repeat a.m. labs. Patient is maintained on Remdesivir along with dexamethasone and vitamin C and zinc supplements and will continue. Review of systems: Constitutional: Reports fatigue and generalized body aches Cardiovascular: No reports of chest pain or palpitations Respiratory: Reports increased shortness of breath and cough GI: No reports of nausea, vomiting, reports diarrhea, reports poor appetite : No reports of dysuria or retention Neurovascular: reports of feeling weak All medications have been reviewed Objective - Vital Signs Vital signs: Vital Signs Temp 98.0 F 02/27/21 05:58 Pulse 74 02/27/21 05:58 Resp 18 02/27/21 05:58 BP 111/69 02/27/21 05:58 Pulse Ox 97 02/27/21 05:58 Intake & Output 02/26/21 02/27/21 02/27/21 18:59 06:59 18:59 Intake Total 800 Balance 800 Intake: IV 800 Sodium Chloride 0.9% 1, 800 000 ml @ 100 mls/hr IV . Q10H [facility] Rx#:[id number] Other: Voiding Method Bedside Commode Bedpan # Voids 5 - Exam GENERAL: The patient is alert and oriented x3, patient is in no respiratory d istress. Tearful. Well developed, well nourished. HEENT: Pupils are round and equally reacting to light. EOMI. No scleral icterus. No conjunctival pallor. Normocephalic, atraumatic. No pharyngeal erythema. No thyromegaly. CARDIOVASCULAR: S1 and S2 present. No murmurs, rubs, or gallops. PULMONARY: Chest is clear to auscultation, no wheezing or crackles. ABDOMEN: Soft, nontender, nondistended, normoactive bowel sounds. No palpable organomegaly. MUSCULOSKELETAL: No joint swelling or deformity. EXTREMITIES: No cyanosis, clubbing, or pedal edema. NEUROLOGICAL: Gross neurological examination did not reveal any focal deficits. SKIN: No rashes. - Labs CBC & Chem 7: 02/25/21 08:54 02/26/21 09:24 Labs: Abnormal Lab Results - Last 24 Hours (Table) 02/26/21 02/26/21 02/27/21 Range/Units 09:24 09:24 07:26 D-Dimer 1.10 H (<0.60) mg/L FEU Chloride 111 H (98-107) mmol/L Carbon Dioxide 21 L (22-30) mmol/L Glucose 116 H (74-99) mg/dL Calcium 7.6 L (8.4-10.2) mg/dL Ferritin 912.5 H (10.0-291.0) ng/mL Lactate Dehydrogenase 595 H (120-246) U/L C-Reactive Protein 9.4 H (0.0-0.8) mg/dL Assessment and Plan Assessment: -Acute hypoxic respiratory failure: Secondary to covid 19 pneumonia. Patient was started on Decadron and is receiving Remdesivir, currently on 8 L via nasal cannula -Hypovolemic hyponatremia secondary to diarrhea from her Covid. Patient is maintained on IV fluids, improving -Elevated liver enzymes secondary to Covid, will repeat liver functions -Depression, anxiety -DVT prophylaxis Lovenox -GI prophylaxis Pepcid Plan: Continue with current medications. Patient has been started on Remdesivir with pulmonary Dr. Maciel following. Continue with dexamethasone along with vitamin and zinc supplements and Lovenox. Patient is having worsening shortness of breath and dyspnea with minimal exertion and is currently on 8 L high flow nasal cannula. Patient is very anxious and tearful today talking about not wanting to be placed on a ventilator. Discussed full CODE STATUS and her options. Patient is maintaining 93-97% on 8 L. Patient is continued with diarrhea with poor oral intake and generalized body aches. Will add Imodium. Encourage the patient to continue using incentive spirometer and increasing activity and sitting in the chair during the day. Will repeat a.m. labs and continue to monitor closely. Continue with IV fluids as well.
[2021-02-27 21:03] LABS: African American GFR (CKD) 97.6 (60.0-200.0); Albumin 3.4 g/dL (3.80-4.90); Albumin/Globulin Ratio 1.89 (1.60-3.17); Anion Gap 7.2 mmol/L (4.00-12.00); BUN/Creat Ratio 26.25 Ratio (12.00-20.00); C Reactive Protein 5.6 mg/dL (0.0-0.8); Calcium 7.7 mg/dL (8.7-10.3); Carbon Dioxide 20.8 mmol/L (21.6-31.8); Ferritin 861.3 ng/mL (10.0-291.0); Globulin 1.8 g/dL (1.6-3.3); Magnesium 2.4 mg/dL (1.5-2.4); Non-African American GFR(CKD) 84.2 (60.0-200.0); Potassium 4.4 mmol/L (3.5-5.5); Total Bilirubin 0.3 mg/dL (0.3-1.2); Total Protein 5.2 g/dL (6.2-8.2)
[2021-02-27] MEDS: REMDESIVIR 100 MG in SODIUM CHLORIDE 0.9% 250 ML IVPB SCH (22:33)
[2021-02-28] MEDS: SODIUM CHLORIDE 0.9% 1,000 ML IV SCH ×3 (03:42→23:00)
[2021-02-28] MEDS: TOPIRAMATE 100 MG TAB PO SCH ×3 (06:29→20:36)
[2021-02-28 06:35] LABS: ALT 70 U/L (4-34); AST 103 U/L (14-36); African American GFR (CKD) >90 (>60 ml/min/1.73 sqM); Albumin 2.7 g/dL (3.5-5.0); Albumin/Globulin Ratio 1.1; Alkaline Phosphatase 121 U/L (38-126); Anion Gap 6 mmol/L; Blood Urea Nitrogen 19 mg/dL (7-17); C Reactive Protein 50.6 mg/L (<10.0); Calcium 7.7 mg/dL (8.4-10.2); Carbon Dioxide 22 mmol/L (22-30); Chloride 112 mmol/L (98-107); Creatine Kinase 49 U/L (30-135); Globulin 2.4 g/dL; Glucose 90 mg/dL (74-99); LDH 2033 U/L (313-618); Magnesium 2.3 mg/dL (1.6-2.3); Non-African American GFR(CKD) >90 (>60 ml/min/1.73 sqM); Sodium 140 mmol/L (137-145); Total Bilirubin 0.4 mg/dL (0.2-1.3); Total Protein 5.1 g/dL (6.3-8.2)
[2021-02-28] MEDS: ACETAMINOPHEN TAB 325 MG TAB PO PRN (07:27)
[2021-02-28] MEDS: ALPRAZolam 0.25 MG TAB PO PRN ×2 (07:27→20:36)
[2021-02-28] MEDS: ONDANSETRON 4 MG/2 ML VIAL IVP PRN ×2 (07:27→20:37)
[2021-02-28] MEDS: ASCORBIC ACID 500 MG TAB PO SCH ×2 (07:28→20:36)
[2021-02-28] MEDS: LOPERAMIDE 2 MG CAP PO PRN (07:28)
[2021-02-28] MEDS: CITALOPRAM HYDROBROMIDE 20 MG TAB PO SCH (07:28)
[2021-02-28] MEDS: dexAMETHasone 2 MG TAB PO SCH (07:28)
[2021-02-28] MEDS: ENOXAPARIN 40 MG/0.4 ML SYRINGE SQ SCH (07:28)
[2021-02-28] MEDS: ZINC SULFATE 220 MG CAP PO SCH (07:28)
[2021-02-28] MEDS: TAPENTADOL HCL PO SCH ×2 (07:28→20:45)
[2021-02-28] MEDS: ESTROGENS, CONJUGATED 0.625 MG TAB PO SCH (07:28)
[2021-02-28] MEDS: FAMOTIDINE 20 MG TAB PO SCH ×2 (07:29→20:36)
[2021-02-28] MEDS: ALBUTEROL HFA INHALER INHALATION PRN ×3 (08:11→19:26)
--- NOTE | 2021-02-28 15:06 | P.PN ---
Subjective Progress Note Date: 02/28/21 Patient is pleasant 55-year-old the female came in with complains of shortness of breath diarrhea generalized body aches has been going on for a about 9 days and patient was tested for Covid 8 days ago which was positive. Patient has mildly elevated d-dimer of 0.7 to elevated liver enzymes sodium is 132, patient was hypoxic 6 chest x-ray showing diffuse bilateral patchy obesity is. I do not have any inflammatory markers available at this time. 02/26/2021 Patient is seen and evaluated in follow-up continues to have diarrhea along with generalized body aches and states that she feels her breathing has gotten worse and is dyspneic with minimal exertion. 02/27/2021 She is seen and evaluated this morning currently sitting up in bed very tearful stating she is afraid that she is worsening and is not going to survive from this. Patient states she has also had multiple conversations with her family members about not wanting to be on a mechanical vent and feels she is going to be intubated soon. Patient is currently maintained on 8 L high flow via nasal cannula with 93-97% oxygen saturation. Patient appears to have a component of anxiety and depression. She denies any suicidal ideation or thoughts of harming herself. Patient's CODE STATUS currently is full code and discussed with her in detail about what this means. Patient does have incentive spirometer at the bedside and instructed and encouraged the patient to continue using at least 10 times every hour while awake along with increasing activity and sitting out of the bed in the chair throughout the day. Patient reports continued diarrhea and Imodium has been added. D-dimer is elevated at 1.10 and will repeat a.m. labs. Patient is maintained on Remdesivir along with dexamethasone and vitamin C and zinc supplements and will continue. 02/28/2021 Patient is seen this morning continues to be severely dyspneic and lethargic although arousable. Maintained on 8 L high flow nasal cannula and oxygen saturation of 90%. pt currently receiving Remdesivir and is maintained on Lovenox along with dexamethasone and vitamin C and zinc supplements and will continue. D-dimer today is elevated at 7.57 and BMP within normal limits. Inflammatory markers also elevated. Patient continues to eat very little and requires continued encouragement of sitting up and incentive spirometer use and eating. Patient is depressed and continues to be extremely nervous and anxious that she will soon. No reports of diarrhea today. Will continue gentle IV hydration Review of systems: Constitutional: Reports fatigue and generalized body aches, extremely lethargic Cardiovascular: No reports of chest pain or palpitations Respiratory: Reports increased shortness of breath and cough GI: No reports of nausea, vomiting, reports poor appetite, no reports of diarrhea today : No reports of dysuria or retention Neurovascular: reports of feeling weak All medications have been reviewed Objective - Vital Signs Vital signs: Vital Signs Temp 97.5 F L 02/28/21 05:51 Pulse 76 02/28/21 05:51 Resp 18 02/27/21 19:50 BP 119/78 02/28/21 05:51 Pulse Ox 98 02/28/21 05:51 Intake & Output 02/27/21 02/28/21 02/28/21 18:59 06:59 18:59 Intake Total 800 Balance 800 Intake: IV 800 Sodium Chloride 0.9% 1, 800 000 ml @ 100 mls/hr IV . Q10H [facility] Rx#:[id number] Other: Voiding Method Bedside Commode Bedpan # Voids 3 # Bowel Movements 1 - Exam GENERAL: The patient is alert and oriented x3, patient is in no respiratory distress. Tearful. Well developed, well nourished. HEENT: Pupils are round and equally reacting to light. EOMI. No scleral icterus. No conjunctival pallor. Normocephalic, atraumatic. No pharyngeal erythema. No thyromegaly. CARDIOVASCULAR: S1 and S2 present. No murmurs, rubs, or gallops. PULMONARY: Diminished breath sounds bilaterally otherwise Chest is clear to auscultation, no wheezing or crackles. ABDOMEN: Soft, nontender, nondistended, normoactive bowel sounds. No palpable organomegaly. MUSCULOSKELETAL: No joint swelling or deformity. EXTREMITIES: No cyanosis, clubbing, or pedal edema. NEUROLOGICAL: Gross neurological examination did not reveal any focal deficits. SKIN: No rashes. - Labs CBC & Chem 7: 02/25/21 08:54 02/28/21 05:38 Labs: Abnormal Lab Results - Last 24 Hours (Table) 02/27/21 02/28/21 02/28/21 Range/Units 07:26 05:38 05:38 D-Dimer 7.57 H (<0.60) mg/L FEU Chloride 112 H 112 H (96-109) mmol/L Carbon Dioxide 20.8 L (21.6-31.8) mmol/L BUN 19 H (7-17) mg/dL BUN/Creatinine Ratio 26.25 H (12.00-20.00) Ratio Calcium 7.7 L 7.7 L (8.7-10.3) mg/dL Ferritin 861.3 H (10.0-291.0) ng/mL AST 113 H 103 H (13-35) U/L ALT 84 H 70 H (8-44) U/L Lactate Dehydrogenase 743 H 2033 H (120-246) U/L C-Reactive Protein 5.6 H 50.6 H (0.0-0.8) mg/dL Total Protein 5.2 L 5.1 L (6.2-8.2) g/dL Albumin 3.40 L 2.7 L (3.80-4.90) g/dL Assessment and Plan Assessment: -Acute hypoxic respiratory failure: Secondary to covid 19 pneumonia. Patient was started on Decadron and is receiving Remdesivir, currently on 8 L via nasal cannula -Hypovolemic hyponatremia secondary to diarrhea from her Covid. Patient is maintained on IV fluids, improved -Elevated liver enzymes secondary to Covid, will repeat liver functions -Elevated inflammatory markers secondary to Covid 19 -Depression, anxiety -DVT prophylaxis Lovenox -GI prophylaxis Pepcid Plan: Continue with current medications. Patient has been started on Remdesivir with pulmonary Dr. Raheem pandya. Continue with dexamethasone along with vitamin and zinc supplements and Lovenox. Patient is having worsening shortness of breath and dyspnea with minimal exertion and is currently on 8 L high flow nasal cannula. Patient continues to be very anxious and tearful about not wanting to be placed on a ventilator. Discussed full CODE STATUS and her options. Patient is maintaining 90% on 8 L. Encourage the patient to continue using incentive spirometer and increasing activity and sitting in the chair during the day. Patient continues to need reinforcement and encouragement and activity, eating, incentive spirometer, and deep breathing. Inflammatory markers along with d- dimer elevated and will continue to monitor closely.
[2021-02-28 15:17] LABS: Ferritin 543.8 ng/mL (10.0-291.0)
--- NOTE | 2021-02-28 17:41 | P.PN ---
Subjective Progress Note Date: 02/28/21 Principal diagnosis: Acute hypoxic respiratory failure Bilateral acutecovid 19 pneumonia Hyponatremia Elevated d-dimer Likely ongoing acute inflammatory response 02/28/2021, patient seen eval examined during the rounds labs reviewed medications reviewed, patient remains hypoxic, intermittently desaturated continue require 8 L oxygen, remains afebrile, saturations ranging from 88-90%, remains on IV Decadron along with Lovenox dose has been escalated given elevated d-dimer, February 27 2021, patient seen and evaluated examined during the rounds labs reviewed medications reviewed, shortness of breath slightly better still have intermittent cough, FiO2 have been 8 L nasal cannula 02/26/2021, patient seen eval examined during the rounds labs reviewed medications reviewed care plan discussed, patient continued to be short of breath, denies any chest pain, remains on 8 L oxygen, patient has been asked to do deep breathing exercises incentive spirometry on a regular basis, This is a 55-year-old female seen evaluated examined emergency department, patient has a multiple family members which were diagnosed positive for cold with initially she was asymptomatic diagnosis: Weight +8 days ago however symptoms started developing about 5-6 days ago with increasing shortness of breath hypoxia and desaturation, on presented into the emergency department patient was hypoxic with saturation of just 80%, she has been placed on 4 L nasal cannula oxygen saturation improves to 96%,, patient's lab is significant for elevated d-dimer 0.7 to, mild thrombocytopenia 149, sodium is decreased 132, chest x-ray positive for diffuse infiltrate Objective - Vital Signs Vital signs: Vital Signs Temp 97.7 F 02/28/21 14:10 Pulse 87 02/28/21 14:10 Resp 20 02/28/21 14:10 BP 116/83 02/28/21 14:10 Pulse Ox 88 L 02/28/21 14:10 Intake & Output 02/27/21 02/28/21 02/28/21 18:59 06:59 18:59 Intake Total 800 800 Balance 800 800 Intake: IV 800 800 Sodium Chloride 0.9% 1, 800 800 000 ml @ 50 mls/hr IV . Q20H [facility] Rx#:[id number] Other: Voiding Method Bedside Commode Bedpan # Voids 3 1 # Bowel Movements 1 - Exam - Constitutional General appearance: average body habitus, disheveled - EENT Eyes: EOMI, PERRLA Ears: bilateral: normal - Neck Neck: normal ROM Carotids: bilateral: upstroke normal Thyroid: bilateral: normal size - Respiratory Respiratory: bilateral: diminished - Cardiovascular Rhythm: regular Heart sounds: normal: S1, S2 - Integumentary Integumentary: normal turgor - Neurologic Neurologic: CNII-XII intact - Musculoskeletal Musculoskeletal: gait normal, generalized weakness, strength equal bilaterally - Psychiatric Psychiatric: A&O x's 3, appropriate affect, intact judgment & insight - Labs CBC & Chem 7: 02/25/21 08:54 02/28/21 05:38 Labs: Abnormal Lab Results - Last 24 Hours (Table) 02/27/21 02/28/21 02/28/21 Range/Units 07:26 05:38 05:38 D-Dimer 7.57 H (<0.60) mg/L FEU Chloride 112 H 112 H (96-109) mmol/L Carbon Dioxide 20.8 L (21.6-31.8) mmol/L BUN 19 H (7-17) mg/dL BUN/Creatinine Ratio 26.25 H (12.00-20.00) Ratio Calcium 7.7 L 7.7 L (8.7-10.3) mg/dL Ferritin 861.3 H 543.8 H (10.0-291.0) ng/mL AST 113 H 103 H (13-35) U/L ALT 84 H 70 H (8-44) U/L Lactate Dehydrogenase 743 H 2033 H (120-246) U/L C-Reactive Protein 5.6 H 50.6 H (0.0-0.8) mg/dL Total Protein 5.2 L 5.1 L (6.2-8.2) g/dL Albumin 3.40 L 2.7 L (3.80-4.90) g/dL Assessment and Plan Assessment: Acute hypoxic respiratory failure Bilateral acutecovid 19 pneumonia Hyponatremia, slowly improving Elevated d-dimer Likely ongoing acute inflammatory response Plan: IV remdesivir Steroids in form of Decadron Supplemental oxygen Deep breathing exercise incentive spirometry Lovenox Inflammatory parameters Continue supportive care and further recommendations pending as per clinical response of the patient Time with Patient: Greater than 30
[2021-02-28] MEDS: ENOXAPARIN 30 MG/0.3 ML SYRINGE SQ SCH (20:36)
[2021-02-28] MEDS: REMDESIVIR 100 MG in SODIUM CHLORIDE 0.9% 250 ML IVPB SCH (20:51)
[2021-03-01] MEDS: ACETAMINOPHEN TAB 325 MG TAB PO PRN ×2 (00:12→08:13)
[2021-03-01] MEDS ORDERED: MORPHINE SULFATE 2 MG/ML SYRINGE IVP STA (01:23)
[2021-03-01] MEDS: ALBUTEROL HFA INHALER INHALATION PRN (07:57)
[2021-03-01] MEDS: ASCORBIC ACID 500 MG TAB PO SCH (08:13)
[2021-03-01] MEDS: FAMOTIDINE 20 MG TAB PO SCH (08:13)
[2021-03-01] MEDS: ENOXAPARIN 30 MG/0.3 ML SYRINGE SQ SCH (08:13)
[2021-03-01] MEDS: ALPRAZolam 0.25 MG TAB PO PRN (08:13)
[2021-03-01] MEDS: CITALOPRAM HYDROBROMIDE 20 MG TAB PO SCH (08:13)
[2021-03-01] MEDS: dexAMETHasone 2 MG TAB PO SCH (08:13)
[2021-03-01] MEDS: TOPIRAMATE 100 MG TAB PO SCH (08:13)
[2021-03-01] MEDS: ZINC SULFATE 220 MG CAP PO SCH (08:13)
[2021-03-01] MEDS: ESTROGENS, CONJUGATED 0.625 MG TAB PO SCH (08:14)
[2021-03-01] MEDS: TAPENTADOL HCL PO SCH (09:28)
[2021-03-01 12:25] LABS: ALT 60 U/L (4-34); African American GFR (CKD) >90 (>60 ml/min/1.73 sqM); Albumin 2.7 g/dL (3.5-5.0); Anion Gap 8 mmol/L; Blood Urea Nitrogen 20 mg/dL (7-17); Calcium 7.7 mg/dL (8.4-10.2); Carbon Dioxide 20 mmol/L (22-30); Chloride 110 mmol/L (98-107); Creatine Kinase 56 U/L (30-135); Globulin 2.8 g/dL; Glucose 115 mg/dL (74-99); Non-African American GFR(CKD) >90 (>60 ml/min/1.73 sqM); Sodium 138 mmol/L (137-145); Total Bilirubin 0.9 mg/dL (0.2-1.3); Total Protein 5.5 g/dL (6.3-8.2)
[2021-03-01 12:41] LABS: AST 77 U/L (14-36); Alkaline Phosphatase 132 U/L (38-126); LDH 2368 U/L (313-618); Magnesium 2.1 mg/dL (1.6-2.3); Potassium 4.3 mmol/L (3.5-5.1)
[2021-03-01 13:04] LABS: C Reactive Protein 179.7 mg/L (<10.0)
--- NOTE | 2021-03-01 13:39 | P.PN ---
Subjective Patient is pleasant 55-year-old the female came in with complains of shortness of breath diarrhea generalized body aches has been going on for a about 9 days and patient was tested for Covid 8 days ago which was positive. Patient has mildly elevated d-dimer of 0.7 to elevated liver enzymes sodium is 132, patient was hypoxic 6 chest x-ray showing diffuse bilateral patchy obesity is. I do not have any inflammatory markers available at this time. 02/26/2021 Patient is seen and evaluated in follow-up continues to have diarrhea along with generalized body aches and states that she feels her breathing has gotten worse and is dyspneic with minimal exertion. 03/01/2021 Patient still feels worse or gets anxious still significantly hypoxic and had respiratory status is actually worse and is requiring 4 L of oxygen at this time. Constitutional: as in HPI Cardio vascular: denied any chest pain, palpitations Gastrointestinal denied any nausea vomiting Pulmonary: As mentioned in the interval history Neurologic denied any new focal deficits All inpatient medications were reviewed and appropriate changes in these medications as dictated in the interval history and assessment and plan. Objective - Vital Signs Vital signs: Vital Signs Temp 97.8 F 03/01/21 10:21 Pulse 104 H 03/01/21 10:21 Resp 37 H 03/01/21 10:21 BP 123/82 03/01/21 10:21 Pulse Ox 89 L 03/01/21 10:21 Intake & Output 02/28/21 03/01/21 03/01/21 18:59 06:59 18:59 Intake Total 800 950 Balance 800 950 Intake: IV 800 600 Sodium Chloride 0.9% 1, 800 600 000 ml @ 50 mls/hr IV . Q20H [facility] Rx#:[id number] Intake, IV Titration 250 Amount Remdesivir 100 mg In 250 Sodium Chloride 0.9% 250 ml @ 250 mls/hr IVPB DAILY@2100 [facility] Rx#: [id number] Oral 100 Other: # Voids 1 2 - Exam GENERAL: The patient is alert and oriented x3, patient is in respiratory distress. Well developed, well nourished. HEENT: Pupils are round and equally reacting to light. EOMI. No scleral icterus. No conjunctival pallor. Normocephalic, atraumatic. No pharyngeal erythema. No thyromegaly. CARDIOVASCULAR: S1 and S2 present. No murmurs, rubs, or gallops. PULMONARY: Chest is clear to auscultation, no wheezing or crackles. ABDOMEN: Soft, nontender, nondistended, normoactive bowel sounds. No palpable organomegaly. MUSCULOSKELETAL: No joint swelling or deformity. EXTREMITIES: No cyanosis, clubbing, or pedal edema. NEUROLOGICAL: Gross neurological examination did not reveal any focal deficits. SKIN: No rashes. - Labs CBC & Chem 7: 02/25/21 08:54 03/01/21 11:37 Labs: Abnormal Lab Results - Last 24 Hours (Table) 02/28/21 03/01/21 03/01/21 Range/Units 05:38 11:37 11:37 D-Dimer 24.99 H (<0.60) mg/L FEU Chloride 110 H (98-107) mmol/L Carbon Dioxide 20 L (22-30) mmol/L BUN 20 H (7-17) mg/dL Glucose 115 H (74-99) mg/dL Calcium 7.7 L (8.4-10.2) mg/dL Ferritin 543.8 H (10.0-291.0) ng/mL AST 77 H (14-36) U/L ALT 60 H (4-34) U/L Alkaline Phosphatase 132 H (38-126) U/L Lactate Dehydrogenase 2368 H (313-618) U/L C-Reactive Protein 179.7 H (<10.0) mg/L Total Protein 5.5 L (6.3-8.2) g/dL Albumin 2.7 L (3.5-5.0) g/dL Assessment and Plan Plan: -Acute hypoxic respiratory failure: Secondary to covid 19 pneumonia. Patient was started on Decadron and on Remdesivir -Hypovolemic hyponatremia secondary to diarrhea from her Covid. Improved now -Elevated liver enzymes secondary to Covid, -Depression -DVT prophylaxis Lovenox -GI prophylaxis Pepcid Plan: Continue with current medications. continue on Remdesivir with pulmonary Dr. Raheem pandya. Continue with dexamethasone along with vitamin and zinc supplements and Lovenox. Patient is having worsening shortness of breath and dyspnea with minimal exertion and is currently on 12 L high flow nasal cannula.
[2021-03-01] MEDS ORDERED: LORazepam 2 MG/ML INJ IV PRN (14:48)
[2021-03-01 15:09] VITALS: BP 121/68; PULSE 139; RESP 39; TEMP 97.6
[2021-03-01] MEDS ORDERED: EPINEPHrine 10 ML SYRINGE (0.1 MG/ML) ONE (15:55)
[2021-03-01] MEDS ORDERED: CALCIUM CHLORIDE 100 MG/ML 10 ML SYRINGE ONE (15:55)
[2021-03-01] MEDS ORDERED: ATROPINE SULFATE 0.1 MG/ML 10ML SYRINGE ONE (15:55)
[2021-03-01] MEDS ORDERED: SODIUM BICARB 8.4% 50 ML SYR (1 MEQ/ML) ONE (15:55)
[2021-03-01] MEDS ORDERED: ALTEPLASE 100 MG in EMPTY BAG 1 BAG IV ONE (16:08)
[2021-03-01 16:15] LABS: Glucose,Whole Blood 141 mg/dL (75-99)
[2021-03-01 16:26] LABS: INR 1.3 (<1.2)
--- NOTE | 2021-03-01 16:38 | P.PN ---
Subjective Progress Note Date: 03/01/21 Principal diagnosis: Acute hypoxic respiratory failure Bilateral acutecovid 19 pneumonia Hyponatremia Elevated d-dimer Likely ongoing acute inflammatory response 03/01/2021, patient was seen evaluated examined sitting upright on the bed extremely anxious complaining of shortness of breath more in respiratory distress, has been complaining of claustrophobia, oxygen requirement have increased to 12 L now, discussed with RN advised to give small doses of Ativan to relieve anxiety, and apprehension, I was reported by the staff about cardiopulmonary arrest on arrival patient was already and pronounced 02/28/2021, patient seen eval examined during the rounds labs reviewed medications reviewed, patient remains hypoxic, intermittently desaturated continue require 8 L oxygen, remains afebrile, saturations ranging from 88-90%, remains on IV Decadron along with Lovenox dose has been escalated given elevated d-dimer, February 27 2021, patient seen and evaluated examined during the rounds labs reviewed medications reviewed, shortness of breath slightly better still have intermittent cough, FiO2 have been 8 L nasal cannula 02/26/2021, patient seen eval examined during the rounds labs reviewed medications reviewed care plan discussed, patient continued to be short of breath, denies any chest pain, remains on 8 L oxygen, patient has been asked to do deep breathing exercises incentive spirometry on a regular basis, This is a 55-year-old female seen evaluated examined emergency department, patient has a multiple family members which were diagnosed positive for cold with initially she was asymptomatic diagnosis: Weight +8 days ago however symptoms started developing about 5-6 days ago with increasing shortness of breath hypoxia and desaturation, on presented into the emergency department patient was hypoxic with saturation of just 80%, she has been placed on 4 L nasal cannula oxygen saturation improves to 96%,, patient's lab is significant for elevated d-dimer 0.7 to, mild thrombocytopenia 149, sodium is decreased 132, chest x-ray positive for diffuse infiltrate Objective - Vital Signs Vital signs: Vital Signs Temp 97.6 F 03/01/21 13:59 Pulse 139 H 03/01/21 13:59 Resp 39 H 03/01/21 13:59 BP 121/68 03/01/21 13:59 Pulse Ox 91 L 03/01/21 13:59 Intake & Output 04/09/21 04/10/21 04/10/21 18:59 06:59 18:59 Intake Total 800 950 Balance 800 950 Intake: IV 800 600 Sodium Chloride 0.9% 1, 800 600 000 ml @ 50 mls/hr IV . Q20H [facility] Rx#:[id number] Intake, IV Titration 250 Amount Remdesivir 100 mg In 250 Sodium Chloride 0.9% 250 ml @ 250 mls/hr IVPB DAILY@2100 [facility] Rx#: [id number] Oral 100 Other: # Voids 1 2 - Exam - Constitutional General appearance: average body habitus, disheveled - EENT Eyes: EOMI, PERRLA Ears: bilateral: normal - Neck Neck: normal ROM Carotids: bilateral: upstroke normal Thyroid: bilateral: normal size - Respiratory Respiratory: bilateral: diminished - Cardiovascular Rhythm: regular Heart sounds: normal: S1, S2 - Integumentary Integumentary: normal turgor - Neurologic Neurologic: CNII-XII intact - Musculoskeletal Musculoskeletal: gait normal, generalized weakness, strength equal bilaterally - Psychiatric Psychiatric: A&O x's 3, appropriate affect, intact judgment & insight - Labs CBC & Chem 7: 02/25/21 08:54 03/01/21 11:37 Labs: Abnormal Lab Results - Last 24 Hours (Table) 03/01/21 03/01/21 03/01/21 Range/Units 11:37 11:37 11:37 PT 13.0 H (9.0-12.0) sec INR 1.3 H (<1.2) D-Dimer 24.99 H (<0.60) mg/L FEU Chloride 110 H (98-107) mmol/L Carbon Dioxide 20 L (22-30) mmol/L BUN 20 H (7-17) mg/dL Glucose 115 H (74-99) mg/dL POC Glucose (mg/dL) (75-99) mg/dL Calcium 7.7 L (8.4-10.2) mg/dL AST 77 H (14-36) U/L ALT 60 H (4-34) U/L Alkaline Phosphatase 132 H (38-126) U/L Lactate Dehydrogenase 2368 H (313-618) U/L C-Reactive Protein 179.7 H (<10.0) mg/L Total Protein 5.5 L (6.3-8.2) g/dL Albumin 2.7 L (3.5-5.0) g/dL 03/01/21 Range/Units 16:14 PT (9.0-12.0) sec INR (<1.2) D-Dimer (<0.60) mg/L FEU Chloride (98-107) mmol/L Carbon Dioxide (22-30) mmol/L BUN (7-17) mg/dL Glucose (74-99) mg/dL POC Glucose (mg/dL) 141 H (75-99) mg/dL Calcium (8.4-10.2) mg/dL AST (14-36) U/L ALT (4-34) U/L Alkaline Phosphatase (38-126) U/L Lactate Dehydrogenase (313-618) U/L C-Reactive Protein (<10.0) mg/L Total Protein (6.3-8.2) g/dL Albumin (3.5-5.0) g/dL Assessment and Plan Assessment: Severe anxiety and apprehension status post cardiopulmonary arrest Acute hypoxic respiratory failure Bilateral acutecovid 19 pneumonia Hyponatremia, slowly improving Elevated d-dimer Likely ongoing acute inflammatory response Plan: Patient was resuscitated as per ACLS protocol could not revive please refer to the CODE BLUE sheet Time with Patient: Greater than 30
--- NOTE | 2021-03-01 16:51 | P.DS ---
Providers Date of admission: 02/25/21 10:54 Attending physician: Lea Lovelace Consults: 02/25/21 10:08 Consult Physician Routine Consulting Provider: Randal Maciel Consult Reason/Comments: Covid Do you want consulting provider notified?: Yes Primary care physician: Mirna Worley Hospital Course: Patient was admitted for Covid 19, her respiratory status continued to get worse. Patient was on 12 L oxygen earlier today, later in the day patient bradycardia down had an asystole CODE BLUE was called, patient was resuscitated for about 30 minutes before patient patient transiently was revived when about to be transferred to ICU and she coded again. Please refer to nursing documentation for exact time of Patient Condition at Discharge: Fair Plan - Discharge Summary Discharge Rx Participant: No New Discharge Prescriptions: No Action Estrogens, Conjugated [Premarin] 0.625 mg PO DAILY Citalopram Hydrobromide [CeleXA] 40 mg PO DAILY Tapentadol HCl [Nucynta ER] 100 mg PO BID Topiramate [Topamax] 100 mg PO BID Cyclobenzaprine [Flexeril] 20 mg PO HS ALPRAZolam [Xanax] 0.25 mg PO BID PRN PRN Reason: Anxiety Cyclobenzaprine [Flexeril] 10 mg PO DAILY@1200 Discharge Medication List Estrogens, Conjugated [Premarin] 0.625 mg PO DAILY 11/28/14 [History] Citalopram Hydrobromide [CeleXA] 40 mg PO DAILY 04/21/18 [History] Tapentadol HCl [Nucynta ER] 100 mg PO BID 04/21/18 [History] Topiramate [Topamax] 100 mg PO BID 06/26/20 [History] ALPRAZolam [Xanax] 0.25 mg PO BID PRN 02/25/21 [History] Cyclobenzaprine [Flexeril] 10 mg PO DAILY@1200 02/25/21 [History] Cyclobenzaprine [Flexeril] 20 mg PO HS 02/25/21 [History] Follow up Appointment(s)/Referral(s): Mirna Worley MD [Primary Care Provider] - 1-2 days Patient Instructions/Handouts: Coronavirus Disease 2019 (COVID-19) Activity/Diet/Wound Care/Special Instructions: HOME MEDS DOWN IN PHARMACY!!!!!!!!!!!!!!!!!!! - Preliminary Cause of Preliminary Cause of : Covid 19
--- NOTE | 2021-03-01 17:20 | P.EN ---
CODE BLUE NOTE Code blue was called overhead. Patient had rec'd 1 round of CPR and 1 round of epinephrine by the time of my arrival. Patient had 1 x 22G access in the RUE. Pts initial rhythm was PEA. Pt was given an additional round of epinephrine, bicarb, and calcium chloride, and had ROSC with sinus bradycardia. However, patient coded again within 1 minute of ROSC. Pt rec'd an additional 2 rounds of epinephrine, 2 pushes of bicarb, and 1 push of calcium chloride. She again received ROSC with sinus bradycardia down to 35. Pt had push of atropine and this improved heart rate briefly to mid-50s, but again patient became bradycardic. Pacing was briefly attempted, but she lost pulse again. CPR re- started, and 1 additional round of epinephrine was given. Pt was also started on levophed gtt via newly established 22G in the LUE. Unfortunately, patient's pulse could not be returned a third time, and time of was called at 16:19. Family was notified. Total code time was approximately 30 minutes. Please see code sheet for further details.
--- NOTE | 2021-03-20 10:07 | P.CNPUL ---
History of Present Illness Consult date: 02/25/21 Reason for consult: dyspnea, cough, hypoxemia, pneumonia Chief complaint: Shortness of breath and cough History of present illness: This is a 55-year-old female seen evaluated examined emergency department, patient has a multiple family members which were diagnosed positive for cold with initially she was asymptomatic diagnosis: Weight +8 days ago however symptoms started developing about 5-6 days ago with increasing shortness of breath hypoxia and desaturation, on presented into the emergency department patient was hypoxic with saturation of just 80%, she has been placed on 4 L nasal cannula oxygen saturation improves to 96%,, patient's lab is significant for elevated d-dimer 0.7 to, mild thrombocytopenia 149, sodium is decreased 132, chest x-ray positive for diffuse infiltrate Review of Systems All systems: negative 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 Past Anesthesia/Blood Transfusion Reactions: No Reported Reaction Past Psychological History: Depression Smoking Status: Never smoker Past Alcohol Use History: None Reported Past Drug Use History: Marijuana - Past Family History Mother Family Medical History: No Reported History Medications and Allergies Home Medications Medication Instructions Recorded Confirmed Type Estrogens, Conjugated [Premarin] 0.625 mg PO DAILY 11/28/14 02/25/21 History Citalopram Hydrobromide [CeleXA] 40 mg PO DAILY 04/21/18 02/25/21 History Tapentadol HCl [Nucynta ER] 100 mg PO BID 04/21/18 02/25/21 History Topiramate [Topamax] 100 mg PO BID 06/26/20 02/25/21 History ALPRAZolam [Xanax] 0.25 mg PO BID PRN 02/25/21 02/25/21 History Cyclobenzaprine [Flexeril] 10 mg PO DAILY@1200 02/25/21 02/25/21 History Cyclobenzaprine [Flexeril] 20 mg PO HS 02/25/21 02/25/21 History Allergies Allergy/AdvReac Type Severity Reaction Status Date / Time No Known Allergies Allergy Verified 02/25/21 10:05 Physical Exam Vitals: Vital Signs Temp Pulse Resp BP Pulse Ox 02/25/21 18:52 18 02/25/21 18:46 98.2 F 72 18 112/64 94 L 02/25/21 16:07 70 94 L 02/25/21 14:28 74 94 L 02/25/21 12:41 98.6 F 87 18 133/60 95 02/25/21 10:31 89 20 135/77 98 02/25/21 08:46 90 24 96 02/25/21 08:37 98.9 F 88 26 H 135/69 86 L Intake and Output 02/25/21 02/25/21 02/25/21 06:59 14:59 22:59 Other: Weight 95.254 kg - Constitutional General appearance: average body habitus, disheveled - EENT Eyes: EOMI, PERRLA Ears: bilateral: normal - Neck Neck: normal ROM Carotids: bilateral: upstroke normal Thyroid: bilateral: normal size - Respiratory Respiratory: bilateral: diminished - Cardiovascular Rhythm: regular Heart sounds: normal: S1, S2 - Integumentary Integumentary: normal turgor - Neurologic Neurologic: CNII-XII intact - Musculoskeletal Musculoskeletal: gait normal, generalized weakness, strength equal bilaterally - Psychiatric Psychiatric: A&O x's 3, appropriate affect, intact judgment & insight Results - Laboratory Findings CBC and BMP: 02/25/21 08:54 02/25/21 08:54 PT/INR, D-dimer D-Dimer 0.72 mg/L FEU (<0.60) H 02/25/21 08:54 Abnormal lab findings: Abnormal Labs 02/25/21 02/25/21 02/25/21 08:54 08:54 08:54 Plt Count 149 L Lymphocytes # 0.5 L D-Dimer 0.72 H Sodium 132 L Glucose 105 H Calcium 7.8 L AST 185 H ALT 75 H Alkaline Phosphatase 127 H Total Protein 5.6 L Albumin 3.0 L - Diagnostic Findings Chest x-ray: report reviewed, image reviewed (Finding as noted above) Assessment and Plan Assessment: Acute hypoxic respiratory failure Bilateral acutecovid 19 pneumonia Hyponatremia Elevated d-dimer Likely ongoing acute inflammatory response Plan: IV in remdesivir Steroids in form of Decadron Supplemental oxygen Deep breathing exercise incentive spirometry Lovenox Inflammatory parameters Continue supportive care and further recommendations pending as per clinical response of the patient Time with Patient: Greater than 30
== END 2021-03-01 16:15 | disposition expired | DRG 177 ==
LOC: EC 08:33 → 4SSUR 10:54
PROVIDERS: ADMIT Internal Medicine; ATTEND Internal Medicine
PROC: XW033E5 Introduction of Remdesivir Anti-infective into Peripheral Vein, Percutaneous Approach, New Technology Group 5 (ICD-10-PCS; principal; 2021-02-25)
PROC: 5A0945A Assistance with Respiratory Ventilation, 24-96 Consecutive Hours, High Flow/Velocity Cannula (ICD-10-PCS; 2021-02-26)
PROC: 0BH17EZ Insertion of Endotracheal Airway into Trachea, Via Natural or Artificial Opening (ICD-10-PCS; 2021-03-01)
PROC: 5A12012 Performance of Cardiac Output, Single, Manual (ICD-10-PCS; 2021-03-01)
PROC: 3E033XZ Introduction of Vasopressor into Peripheral Vein, Percutaneous Approach (ICD-10-PCS; 2021-03-01)
DX: U07.1 COVID-19 (principal); J96.01 Acute respiratory failure with hypoxia; J12.82 Pneumonia due to coronavirus disease 2019; E87.1 Hypo-osmolality and hyponatremia; A08.39 Other viral enteritis; D69.6 Thrombocytopenia, unspecified; I46.8 Cardiac arrest due to other underlying condition; F40.240 Claustrophobia; R00.1 Bradycardia, unspecified; E86.1 Hypovolemia; F32.9 Major depressive disorder, single episode, unspecified; G89.29 Other chronic pain; M54.2 Cervicalgia; M54.9 Dorsalgia, unspecified; R74.8 Abnormal levels of other serum enzymes; E66.9 Obesity, unspecified; Z68.36 Body mass index [BMI] 36.0-36.9, adult; Z79.899 Other long term (current) drug therapy; Z79.890 Hormone replacement therapy; Z98.84 Bariatric surgery status; Z90.49 Acquired absence of other specified parts of digestive tract; Z90.710 Acquired absence of both cervix and uterus; Z90.89 Acquired absence of other organs; Z87.19 Personal history of other diseases of the digestive system; Z87.39 Personal history of other diseases of the musculoskeletal system and connective tissue; Z87.42 Personal history of other diseases of the female genital tract; Z98.890 Other specified postprocedural states
CPT/HCPCS: 36415; 71045; 80048; 80053; 82550; 82728; 83605; 83615; 83735; 84484; 85025; 85379; 85610; 86140; 93005; 94640; 96374; 96375; 99285